=== PATIENT | male | born 1945 | race Caucasian/White ===

== ENCOUNTER 2017-06-10 08:30 | Outpatient (RCR) | payer MEDICARE, BC, SELFPAY ==
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
--- NOTE | 2017-03-04 13:41 | HP.PTREVAL ---
Odalis Humphries, DO, It has been my pleasure to treat DAGMAR GRNAGER over the last 6 visits for DECEONDITIONING. SIDNEY FASCIOTOMIES. COMPARTMENT SYNDROME. Please see the progress note below for an update on the physical therapy plan of care! Subjective: PATIENT REPORTS HE IS STILL HAVING TROUBLE GETTING UP FROM A CHAIR BUT HE IS WALKING A LOT BETTER. HE REPORTS HE DOESN'T USE THE WALKER ANYMORE AND HE WON'T USE A CANE. HE AND HIS REPORT THAT THEIR DAUGHTER RECENTLY UNEXPECTEDLY AND THEY ARE TRYING TO DEAL WITH THAT AND HAD TO MISS SOME THERAPY. THEY REPORT HE HAS RECENTLY BEEN TO THE HEART DOCTOR AND THE LUNG DOCTOR. 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 HE REPORTS HE IS NO LONGER HAVING ANY PAIN IN HIS RIGHT LEG. HE REPORTS HE DOESN'T HAVE ANY SPECIFIC PAIN ANYWHERE BUT HE IS HAVING A LOT OF SWELLING IN HIS HANDS. HE STATES HE REALLY JUST WANTS TO TRY TO GET STRONGER AND SOME MORE STABILITY. HE REPORTS HE DID HAVE A FALL ON THE STEPS AT HOME ABOUT TWO WEEKS AGO BUT DENIES ANY SIGNIFICANT INJURIES. HE WAS HELPED UP AND DID NOT GO TO THE HOSPITAL. RE-CHECK WITH DR. HUMPHRIES PENDING. Objective/Function: UPON EXAM,. Sitting Posture: POOR. Standing Posture: POOR. Other Observations: SIDNEY UE DEPENDENT TO TRANSFER FROM SIT TO STAND BUT PATIENT ABLE TO DO INDEP'LY. Motor deficit: LEFT LE STRENGTH 5/5 WITH MMT EXCEPT HIP GRADED 4/5. RIGHT LE: HIP 4-/5, KNEE EXT 4-/5, KNEE FLEX 4/5, ANKLE DORSIFLEXION 4/5. PATIENT DENIES PAIN WITH MMT. Sensory deficit: SIDNEY LE LIGHT TOUCH SENSATION APPEARS TO BE GROSSLY INTACT. NO BANDAGING OF RIGHT LE AND PATIENT DENIES ANY ISSUES WITH RIGHT LE AT THIS TIME. ROM deficit: TIGHT SIDNEY LE HS'S AND GASTROC SOLEUS COMPLEX'S. Core strength: POOR. Palpation: NO ACUTE TENDERNESS WITH LIGHT PALPATION THROUGHOUT SIDNEY LE'S. GAIT: THIS PATIENT AMBULATES INDEP'LY INTO PT TODAY WITH FAIR CADANCE, WIDE ELIZABETH, DECREASED SIDNEY STRIDE LENGTH, MILD SOB AND NO ASSISTIVE DEVICES OR LOB NOTED X APPROX 300 FEET. HE IS UNABLE TO SLS ON EITHER LEG > 1-2 SEC WITHOUT UE ASSIST. Plan Plan: POSTURE CORRECTION/STRENGTHENING, INSTRUCTION IN APPROPRIATE BODY MECHANICS AND ACTIVITY MODIFICATIONS. DLS STARTING WITH A NEUTRAL SPINE PROGRESSING ROM TOLERATED. GENERAL RECONDITIONING. SIDNEY LE ROM, STRETCHING AND STRENGTHENING. GAIT TRAINING. TRANSFER TRAINING. HEP INSTRUCTION. PATIENT IS AGREEABLE AND STATES THAT IS EXACTLY WHAT HE THINKS HE NEEDS. Goals Goal 1:: INDEP AND SAFE WITH ALL TRANSFERS Goal Time Frame: 4-6 Weeks Goal 2:: INDEP AND SAFE GAIT ON ALL SURFACES WITH LEAST ASSISTIVE DEVICE Goal Time Frame: 4-6 Weeks Goal 3:: INCREASE SIDNEY LE FUNCTIONAL STRENGTH AND ROM Goal Time Frame: 4-6 Weeks Goal 4:: INDEP HEP WITH OR WITHOUT THE HELP OF GROUND PRODUCTS DIRECTOR Goal Time Frame: 4-6 Weeks Anticipated Interventions Patient/Client Instruction: Educate patient on: Condition, Plan of Care, Risk Factors, Benefits of Fitness Program For the Purpose of:: To improve self management Therapeutic Exercise to Include: Strength training, Endurance training, Balance training, Body mechanics, Postural training, Flexibilty training, Gait and locomotor training, Dynamic Lumbar Stabilization For the Purpose of:: To improve ability of physical actions for home/community/work/leisure Please do not hesitate to contact me at [phone] by phone or if you have questions or concerns regarding this new plan of care! Sincerely, Hilda Miner
--- NOTE | 2017-03-25 10:14 | HP.PTREVAL ---
Odalis Humphries, DO, It has been my pleasure to treat DAGMAR GRANGER over the last 12 visits for DECEONDITIONING. SIDNEY FASCIOTOMIES. COMPARTMENT SYNDROME. Please see the progress note below for an update on the physical therapy plan of care! Subjective: PATIENT REPORTS HE IS NOT DOING REAL WELL. STATES HE CANCELLED TUESDAY BECAUSE HE HAS BRONCHITIS AND THE DOCTOR TOLD HIM TO REST. STATES HE ISN'T SURE IF HE SHOULD BE HERE NOW OR NOT. ALSO STATES HE DOES NOT HAVE HIS WALKER WITH HIM BECAUSE HE DOESN'T NEED IT. PATIENT REPORTS HE IS COUGHING A LOT. HE REPORTS HE IS GETTING A PRESCRIPTION FOR COUGH MEDICINE. PATIENT REPORTS HE WENT TO THE DOCTOR SOON HE STARTED COUGHING BECAUSE HE WAS WORRIED ABOUT PNEUMONIA. HE REPORTS HIS CHEST X-RAY WAS NEGATIVE AND THE DOCTOR TOLD HIM TO GO HOME AND REST. PATIENT REPORTS HE IS NOT SCHEDULED TO FOLLOW UP WITH DR. HUMPHRIES FOR QUITE A WHILE. PATIENT REPORTS THAT WHEN HE RETIRED IN AUGUST HE WAS ABLE TO WALK AROUND THE SHOP A LOT BETTER THAN HE CAN NOW BUT HE WAS ALREADY STARTING TO HAVE TROUBLE GETTING OUT OF A CHAIR. HE HAD HIS SURGERY October AND HAS BEEN TRYING TO RECOVER EVER SINCE. HE REPORTS THE PHYSICAL THERAPY HERE AT [facility] IS REALLY HELPING HIM GET HIS STRENGTH BACK. PATIENT REPORTS HE HAS STARTED TO DRIVE A LITTLE BIT AND IT IS GOING WELL. Objective/Function: UPON EXAM,. Sitting Posture: POOR. Standing Posture: POOR. Other Observations: SIDNEY UE DEPENDENT TO TRANSFER FROM SIT TO STAND BUT PATIENT ABLE TO DO INDEP'LY. THIS IS DIFFICULT FOR PATIENT BUT IMPOVING SLOWLY. Motor deficit: LEFT LE STRENGTH 5/5 WITH MMT EXCEPT HIP GRADED 4/5. RIGHT LE: HIP 4/5, KNEE EXT 4-/5, KNEE FLEX 5/5, ANKLE DORSIFLEXION 5/5. PATIENT DENIES PAIN WITH MMT. Sensory deficit: SIDNEY LE LIGHT TOUCH SENSATION APPEARS TO BE GROSSLY INTACT. NO BANDAGING OF RIGHT LE AND PATIENT DENIES ANY ISSUES WITH RIGHT LE AT THIS TIME. ROM deficit: TIGHT SIDNEY LE HS'S AND GASTROC SOLEUS COMPLEX'S. Core strength: POOR. Palpation: NO ACUTE TENDERNESS WITH LIGHT PALPATION THROUGHOUT SIDNEY LE'S. GAIT: THIS PATIENT AMBULATES INDEP'LY INTO PT TODAY WITH FAIR CADANCE, WIDE ELIZABETH, DECREASED SIDNEY STRIDE LENGTH, MILD SOB AND NO ASSISTIVE DEVICES OR LOB NOTED X APPROX 300 FEET. HE IS UNABLE TO SLS ON EITHER LEG > 1-2 SEC WITHOUT UE ASSIST. HE IS REALLY UNSAFE WITHOUT AN AD. HE DOES BETTER WITH A WALKER THAN A CANE. HE IS VERY RESISTANT TO USING A WALKER AT TIMES BUT OTHER TIMES HE IS WILLING. Plan Plan: *ENCOURAGE WALKER FOR SAFETY*. POSTURE CORRECTION/STRENGTHENING, INSTRUCTION IN APPROPRIATE BODY MECHANICS AND ACTIVITY MODIFICATIONS. DLS STARTING WITH A NEUTRAL SPINE PROGRESSING ROM TOLERATED. GENERAL RECONDITIONING. SIDNEY LE ROM, STRETCHING AND STRENGTHENING. GAIT TRAINING. TRANSFER TRAINING. HEP INSTRUCTION. PATIENT IS AGREEABLE AND STATES THAT IS EXACTLY WHAT HE THINKS HE NEEDS. Goals Goal 1:: INDEP AND SAFE WITH ALL TRANSFERS Goal Time Frame: 4-6 Weeks Goal Progress: Progressing Goal 2:: INDEP AND SAFE GAIT ON ALL SURFACES WITH LEAST ASSISTIVE DEVICE Goal Time Frame: 4-6 Weeks Goal Progress: Progressing Goal 3:: INCREASE SIDNEY LE FUNCTIONAL STRENGTH AND ROM Goal Time Frame: 4-6 Weeks Goal Progress: Progressing Goal 4:: INDEP HEP WITH OR WITHOUT THE HELP OF ELECTRICAL CONTROLS TECHNICIAN Goal Time Frame: 4-6 Weeks Goal Progress: Progressing Anticipated Interventions Patient/Client Instruction: Educate patient on: Condition, Plan of Care, Risk Factors, Benefits of Fitness Program For the Purpose of:: To improve self management Therapeutic Exercise to Include: Strength training, Endurance training, Balance training, Body mechanics, Postural training, Flexibilty training, Gait and locomotor training, Dynamic Lumbar Stabilization For the Purpose of:: To improve ability of physical actions for home/community/work/leisure Please do not hesitate to contact me at [phone] by phone or if you have questions or concerns regarding this new plan of care! Sincerely, Hilda Miner
--- NOTE | 2017-04-24 17:46 | HP.PTREVAL_ITS ---
Odalis Humphries, DO, It has been my pleasure to treat DAGMAR GRANGER over the last 18 visits for DECEONDITIONING. SIDNEY FASCIOTOMIES. COMPARTMENT SYNDROME. Please see the progress note below for an update on the physical therapy plan of care! Subjective: PATIENT REPORTS HE IS A LOT BETTER AND HE THINKS HE WOULD LIKE TO TRY TO CONTINUE EXERCISING ON HIS OWN AT THIS POINT BUT OPEN TO CONSIDER WHAT I THINK. REPORTS HE WENT DOWN STEPS AT HIS HOUSE FOR THE FIRST TIME. COMING BACK UP HE WENT ONE STEP AT A TIME WITH THE HANDRAIL AND IST WAS TOUGH BUT HE DID IT. HE REPORTS HE IS NOT HAVING ANY PAIN AT ALL. STATES HE HAS EVEN DONE SOME WALKING OUT ON HIS DRIVEWAY. REPORTS HE IS DOING HIS HEP NOW. HIS CHEIF COMPLAINT IS RIGHT LEG TIGHTNESS AND WEAKNESS BUT THE EX'S ARE HELPING AND IT IS GETTING STRONGER. HE REPORTS THE WEAKNESS IS STILL MAKING IT HARD TO GET DRESSED AND GET IN/OUT OF THE CAR (TRUCK IS EASIER). STATES HIS STILL HAS TO PUT HIS SHOES AND SOCKS ON. HE REPORTS THAT HE CAN NOW PITCH BALL TO HIS GRANDKIDS OK BUT HE CAN'T HIT GOLF BALLS DUE TO BEING OFF BALANCE. REFUSES ASSISTIVE DEVICES. Objective/Function: PATIENT STILL HAS SIGNIFICANT RIGHT LE EDEMA. LACKS FULL CONTROL LOWING SELF FROM STAND TO SIT. ABLE TO NOW GET LEGS ON BED W/OUT UE ASSIST WHEN TRANSITIONING ROM SIT TO SUPINE. LEFT KNEE AROM IN SUPIINE WITH A HEEL SLIDE IS 0 TO 125 DEG FLEX. RIGHT 0-110 DEG FLEX. CASE CONFERENCE WITH WILD BURR - RECOMMEND OT CONSULT FOR DRESSING AND POSSIBLE INSTRUCTION IN SOCK AID. PATIENT IS AGREEABLE. Plan Plan: CONT PT 2X'S A WEEK. POSTURE CORRECTION/STRENGTHENING, INSTRUCTION IN APPROPRIATE BODY MECHANICS AND ACTIVITY MODIFICATIONS. DLS STARTING WITH A NEUTRAL SPINE PROGRESSING ROM TOLERATED. GENERAL RECONDITIONING. SIDNEY LE ROM, STRETCHING AND STRENGTHENING. GAIT TRAINING. TRANSFER TRAINING. HEP INSTRUCTION. PATIENT IS AGREEABLE Goals Goal 1:: INDEP AND SAFE WITH ALL TRANSFERS Goal Time Frame: 4-6 Weeks Goal Progress: Progressing Goal 2:: INDEP AND SAFE GAIT ON ALL SURFACES WITH LEAST ASSISTIVE DEVICE Goal Time Frame: 4-6 Weeks Goal Progress: Progressing Goal 3:: INCREASE SIDNEY LE FUNCTIONAL STRENGTH AND ROM Goal Time Frame: 4-6 Weeks Goal Progress: Progressing Goal 4:: INDEP HEP WITH OR WITHOUT THE HELP OF GROUP FITNESS INSTRUCTOR Goal Time Frame: 4-6 Weeks Goal Progress: Progressing Anticipated Interventions Patient/Client Instruction: Educate patient on: Condition, Plan of Care, Risk Factors, Benefits of Fitness Program For the Purpose of:: To improve self management Therapeutic Exercise to Include: Strength training, Endurance training, Balance training, Body mechanics, Postural training, Flexibilty training, Gait and locomotor training, Dynamic Lumbar Stabilization For the Purpose of:: To improve ability of physical actions for home/community/ work/leisure Please do not hesitate to contact me at [phone] by phone or Fax: if you have questions or concerns regarding this new plan of care! Sincerely, Hilda Miner
--- NOTE | 2017-06-10 09:48 | HP.PTREVAL_ITS ---
Odalis Humphries, DO, It has been my pleasure to treat DAGMAR GRANGER over the last 22 visits for DECEONDITIONING. SIDNEY FASCIOTOMIES. COMPARTMENT SYNDROME. Please see the progress note below for an update on the physical therapy plan of care! Subjective: PATIENT REPORTS DR. BARNEY TOLD HIM NOT TO GO OUT IN THE COLD BECAUSE OF HIS HEART CONDITION. HE REPORTS THAT IS WHY HE DOESN'T COME TO PT SOMETIMES. PT STATES I FEEL GOOD MOST OF THE TIME. I AM PHYSICALLY IN PRETTY GOOD SHAPE I THINK. PATIENT REPORTS HE AVOIDS KNEELING DOWN THOUGH. PATIENT REPORTS HIS HOME EX IS GOING GOOD AND HE WOULD LIKE TO JUST CONTINUE EXERCISING AT HOME FOR NOW. PATIENT REPORTS HE IS LOOKING FORWARD TO WHEN IT WARMS UP. HE REPORTS THAT HE VISITS PEOPLE IN HIS [place] THAT NEED IT AND HE REALLY ENJOYS IT. PATIENT REPORTS HE HASN'T SEEN AN OCCUPATIONAL THERAPIST AGAIN BECAUSE HE DID PLENTY OF THAT IN THE HOSPITAL. PATIENT REPORTS HE CAN GET HIS SHOES ON AND IS LEFT SOCK BY HIMSELF NOW HE JUST CAN'T GET HIS RIGHT SOCK ON. PATIENT REPORTS HE IS COMPLETELY DRESSING HIMSELF NOW EXCEPT HIS RIGHT SOCK AND HE DOES NOT WANT TO SEE AN OCCUPATIONAL THERAPIST. HIS HELPS HIM WITH HIS RIGHT SOCK. Objective/Function: PATIENT IS IMPROVING OVER-ALL. PATIENTS RIGHT LE EDEMA IS SIGNIFICANTLY BETTER. ABLE TO CONTROL LOWING SELF FROM STAND TO SIT NOW. ABLE TO NOW GET LEGS ON BED W/OUT UE ASSIST WHEN TRANSITIONING FROM SIT TO SUPINE. LEFT KNEE AROM IN SUPIINE WITH A HEEL SLIDE IS 0 TO 130 DEG FLEX. RIGHT 0-115 DEG FLEX. PATIENT IS NOW ABLE TO TRANSITION FROM SIT TO STAND WITH ONE UE ASSIST. HE IS ALMOST ABLE TO GET UP WITHOUT USING HIS HANDS. HOWEVER, HE IS STILL UNABLE TO SINGLE LEG STANCE ON EITHER LE MORE THAN 1-2 SECONDS WITHOUT UE ASSIST. PATIENT CONTINUES TO REFUSE ASSISTIVE DEVICE DESPITE MY RECOMMENDATIONS. PATIENT IS A HIGH FALL RISK. PATIENT COMMUNICATES A GOOD UNDERSTANDING OF HEP INSTRUCTIONS. Plan Plan: WILL D/C PATIENT AT HIS REQUEST AT THIS TIME. PATIENT AGREED TO LET ME DISCUSS THE OUTCOME OF THIS VISIT WITH HIS . SHE DID NOT COME BACK TO THE TREATMENT ROOM TODAY AND SHE WAS NOT AVAILABLE AT THE CONCLUSION OF HIS APPOINTMENT. I TOLD HIM HE COULD HAVE HER CALL ME IF SHE HAS ANY QUESTIONS. Goals Goal 1:: INDEP AND SAFE WITH ALL TRANSFERS Goal Time Frame: 4-6 Weeks Goal Progress: Goal Met Goal 2:: INDEP AND SAFE GAIT ON ALL SURFACES WITH LEAST ASSISTIVE DEVICE Goal Time Frame: 4-6 Weeks Goal Progress: Progressing Goal 3:: INCREASE SIDNEY LE FUNCTIONAL STRENGTH AND ROM Goal Time Frame: 4-6 Weeks Goal Progress: Goal Met Goal 4:: INDEP HEP WITH OR WITHOUT THE HELP OF STEVEDORE HOLD Goal Time Frame: 4-6 Weeks Goal Progress: Goal Met Anticipated Interventions Patient/Client Instruction: Educate patient on: Condition, Plan of Care, Risk Factors, Benefits of Fitness Program For the Purpose of:: To improve self management Therapeutic Exercise to Include: Strength training, Endurance training, Balance training, Body mechanics, Postural training, Flexibilty training, Gait and locomotor training, Dynamic Lumbar Stabilization For the Purpose of:: To improve ability of physical actions for home/community/ work/leisure Please do not hesitate to contact me at [phone] by phone or Fax: if you have questions or concerns regarding this new plan of care! Sincerely, Hilda Miner
== END 2017-06-10 09:00 | disposition home or self-care (01) ==
LOC: PT 08:30
PROVIDERS: Family Provider Preventive Medicine Occupational Medicine; PCP Preventive Medicine Occupational Medicine; Visit Provider Orthopaedic Surgery
DX: M79.A29 Nontraumatic compartment syndrome of unspecified lower extremity (principal)
CPT/HCPCS: 97110; 97116; 97163; 97530; G8978; G8979

== ENCOUNTER 2017-07-19 18:33 | Emergency (ER) | payer MEDICARE, BC, SELFPAY ==
[2017-07-19 18:35] VITALS: BP 183/102; PULSE 55; RESP 20; TEMP 36.5; O2SAT 94; BMI 39.4
[2017-07-19 18:59] VITALS: O2SAT 95
--- NOTE | 2017-07-19 19:07 | EKG12_ITS ---
Test Reason : SOB Blood Pressure : / mmHG Vent. Rate : 051 BPM Atrial Rate : 051 BPM P-R Int : 336 ms QRS Dur : 084 ms QT Int : 556 ms P-R-T Axes : 073 071 095 degrees QTc Int : 512 ms Sinus bradycardia with 1st degree A-V block Nonspecific ST and T wave abnormality Prolonged QT Abnormal ECG Confirmed by STEVEN JAVED, MEERA ([id number]), editorial intern KASSI GONZALEZ ([id number]) on 07/20/2017 2:29:55 PM Referred By: JENNIFER Confirmed By:MEERA HARRIS MD
[2017-07-19 19:17] LABS: Absolute Lymphocyte Count 1.62 X10^3/ul (0.83-4.51); Absolute Neutrophil Count 5.3 X10^3/uL (2.0-7.7); Basophil# 0.01 X10^3/uL; Basophil% 0.1 % (0-1); Eosinophil# 0.29 X10^3/uL; Eosinophils% 3.6 % (0-5); Hematocrit 35.3 % (40-54); Hemoglobin 10.9 g/dl (13.0-16.5); Lymphocyte # 1.62 X10^3/ul (4.0); Mean Corp Hgb Conc 30.9 g/gl (32-36); Mean Corpuscular Hgb 27.9 pg (27.0-32.0); Mean Corpuscular Volume 90.5 fL (80-94); Mean Platelet Vol. 10.3 fl (6.2-12.0); Monocyte# 0.86 X10^3/uL; Monocyte% 10.6 % (0-10); Neutrophil # 5.29 X10^3/uL (2.7-7.7); Neutrophil % 65.2 % (47-70); POSITIVE COUNT NO; POSITIVE DIFFERENTIAL NO; POSITIVE MORPHOLOGY NO; Platelet Count 360 K/mm3 (150-450); RBC Distribution Width SD 52.8 fl (35.1-43.9); White Blood Count 8.1 K/mm3 (4.4-11.0)
[2017-07-19] MEDS: Ipratropium/Albuterol Sulfate 3 ML AMPUL.NEB INHALATION (19:18)
[2017-07-19 19:19] VITALS: PULSE 52; RESP 18
[2017-07-19 19:39] LABS: Anion Gap 7 (5-15); BUN 33 mg/dL (7-18); BUN/Creat Ratio 18.8 RATIO (10-20); Calcium,Total 9.1 mg/dL (8.5-10.1); Chloride 102 mmol/L (98-107); Creatinine, Serum 1.76 mg/dL (0.70-1.30); EST Glomerular Filtration Rate 41 mL/min (>60); Est Glom Filt Rate - Afr Amer 49 mL/min (>60); Estimated Creatinine Clearance 42.25 ml/min; Glucose 208 mg/dL (74-106); Potassium 3.8 mmol/L (3.5-5.1); Sodium Level 140 mmol/L (136-145)
--- NOTE | 2017-07-19 19:40 | RAD_ITS ---
STUDY: X-RAY CHEST REASON FOR EXAM: Male, 72 years old. Shortness of breath x4-6 weeks TECHNIQUE: Single AP portable view of the chest. COMPARISON: 02/05/2017 FINDINGS: Lungs are mildly hypoinflated. Mild diffuse interstitial prominence suggesting vascular congestion. There is no demonstrated pleural abnormality. Sternal cerclage wires and vascular clips are present from a prior sternotomy and coronary artery bypass graft procedure (CABG). Normal mediastinum and hodan. Normal visualized pulmonary arteries. Normal visualized aortic arch and descending thoracic aorta. Normal visualized thoracic spine. There is degenerative osteoarthritis of the bilateral shoulders. There is no demonstrated abnormality of the visualized soft tissue structures of the upper abdomen. RAD/Chest 1 View (Portable) IMPRESSION: Findings suggestive of CHF Electronically Signed: Mario Burns DO at 20:15 EST Tel , Service support ,
[2017-07-19 19:44] LABS: BNP,B-Type NATRIURETIC PEPTIDE 704.8 pg/mL (0-100)
--- NOTE | 2017-07-19 20:54 | ED.VISSUMM ---
- ER Visit Summary Date of Service: 07/19/17 Chief Complaint: Dyspnea History of Present Illness: The patient is a 72 M presents with dyspnea) past few weeks. No tobacco history. Here with spouse. States history of CHF, COPD, has seen PCP 3-4 times since symptoms started. There has been torsemide adjustments. There is been no leg swelling on last visit. Currently taking torsemide at 20 mg daily. Denies orthopnea symptoms. Does complain of some mild productive sputum. No fevers or chills. No chest pains. Patient with complex history including an STEMI, he states he had right lower leg compartment syndrome from being on Coumadin with a history of A. fib. This was in September 2015. After being taken off anticoagulation, he developed DVT and PE along with pneumonia since then. He is currently on Eliquis and is taking his medications. Discussed with exertional dyspnea, he denies, however family states he did have mild exertional dyspnea on their 1 visit. Physical Examination: Temp: 97.7, pulse 55, respiration 20, blood pressure 183/102, pulse ox 94 on room air general: Alert and oriented ?3, no acute distress HEENT: Normocephalic, atraumatic. Moist mucosa membranes Neck: supple, nontender. Cardiovascular: Regular rate and rhythm, no murmurs Respiratory: Normal breath sounds, symmetric, no distress Abdomen: Soft, nontender, nondistended Extremities: Nontender, no edema, pulses intact ?4 Neuro: no focal neurological deficits. Test Results: EKG sinus bradycardia rate of 51, first-degree block, no ST or T-wave changes. CBC, BMP is white count 8.1, hemoglobin 0.9, creatinine 1.76. BNP 704, troponin 0 0.97. Chest x-ray, concerns of mild CHF per radiology. Emergency Department Course and Treatment: Patient complains of new symptoms much cough states he wheezing at home. No distress on examination. EKG normal. Is given aerosol treatments. Workup initiated. Chest x-ray no mild CHF per radiology, BNP 704. He is not hypoxic or tachypneic. He is on furosemide daily. Troponin did return at 0.97, EKG normal. He denies any chest pains recently. With aerosol treatments his symptoms did improve. Creatinine is chronic from previous comparisons. I did speak with cardiology, Dr. Villavicencio with the troponin findings. During discussion we trended his labs, no troponin chronically elevated he had NSTEMI in December of last year, in January had a troponin similar at 0.97. With these chronic findings, cardiology did not feel further workup is needed. To be seen as an outpatient. Vitals are stable, with his COPD history with cough and mild sputum, discuss regarding gold criteria for treat with antibiotics. He started on Zithromax. He will follow-up as an outpatient. He will return if any worsening symptoms. Treatment Plan: [] Disposition: Discharge Impression: 1. COPD exacerbation 2. Chronic kidney disease 3. Chronic elevated troponin This note was generated with [employer] dictation software. It may contain incorrect words, spelling, and punctuation that were not noted in review of the chart prior to signing ED Disposition - Plan for ED Patient: Disposition: Home or Assisted Living Chief Complaint: Shortness of Breath Diagnosis: COPD exacerbation Instructions: ED COPD Flare Prescriptions: Albuterol Sulfate [Proventil Hfa] 6.7 gm IH Q4H PRN PRN #1 [email or web address] PRN Reason: sob or wheezing Azithromycin [Zithromax] 250 mg PO DAILY #4 tablet Referrals: Chad Hill DO [Primary Care Provider] - 3-5 Days
[2017-07-19 20:55] VITALS: BP 181/88; PULSE 55; RESP 20; RESP 22; O2SAT 98; O2SAT 99
[2017-07-19] MEDS: Azithromycin 250 MG Tablet 500 MG PO (21:04)
== END 2017-07-19 21:19 | disposition home or self-care (01) ==
PROVIDERS: Emergency Provider Emergency Medicine; Family Provider Preventive Medicine Occupational Medicine; PCP Preventive Medicine Occupational Medicine
DX: J44.1 Chronic obstructive pulmonary disease with (acute) exacerbation (principal); I13.0 Hypertensive heart and chronic kidney disease with heart failure and stage 1 through stage 4 chronic kidney disease, or unspecified chronic kidney disease; E11.22 Type 2 diabetes mellitus with diabetic chronic kidney disease; N18.9 Chronic kidney disease, unspecified; I50.9 Heart failure, unspecified; R79.89 Other specified abnormal findings of blood chemistry; I44.0 Atrioventricular block, first degree; I25.2 Old myocardial infarction; E78.00 Pure hypercholesterolemia, unspecified; M10.9 Gout, unspecified; Z86.711 Personal history of pulmonary embolism; Z86.718 Personal history of other venous thrombosis and embolism; I48.0 Paroxysmal atrial fibrillation; M79.A21 Nontraumatic compartment syndrome of right lower extremity; Z87.01 Personal history of pneumonia (recurrent); Z95.1 Presence of aortocoronary bypass graft; Z79.01 Long term (current) use of anticoagulants; Z79.82 Long term (current) use of aspirin; Z79.4 Long term (current) use of insulin; Z79.899 Other long term (current) drug therapy
CPT/HCPCS: 71045; 80048; 83880; 84484; 85025; 93005; 94640; 99285; A4216

== ENCOUNTER → 2017-09-08 10:16 | Outpatient (CLI) | payer MEDICARE, BC, SELFPAY | PROVIDERS: Family Provider Preventive Medicine Occupational Medicine; PCP Preventive Medicine Occupational Medicine; Visit Provider Nurse Practitioner Acute Care | DX: J18.9 Pneumonia, unspecified organism (principal) | CPT/HCPCS: 87070; 87205 ==

== ENCOUNTER → 2017-09-13 16:05 | Outpatient (CLI) | payer MEDICARE, BC, SELFPAY ==
--- NOTE | 2017-09-13 16:19 | RAD_ITS ---
STUDY: X-RAY CHEST REASON FOR EXAM: Male, 72 years old. Dyspnea TECHNIQUE: Frontal and lateral views of the chest. COMPARISON: 07/19/2017 FINDINGS: The lungs are hyperexpanded. There are coarsened interstitial markings suggestive of mild chronic fibrosis. Scarring in both lung bases is stable. No gross focal infiltrates. Bilateral very small pleural effusions. Sternal cerclage wires and vascular clips are present from a prior sternotomy and coronary artery bypass graft procedure (CABG). Normal mediastinum and hodan. Normal visualized pulmonary arteries. Normal visualized aortic arch and descending thoracic aorta. There are diffuse degenerative changes of the visualized thoracic spine. There is a stable left shoulder arthroplasty. There is no demonstrated abnormality of the visualized soft tissue structures of the upper abdomen. RAD/Chest PA and Lateral IMPRESSION: COPD with mild fibrosis and scarring. Small bilateral pleural effusions. Electronically Signed: Anup Sands MD at 19:22 EDT , Service support ,
[2017-09-13 17:49] LABS: Anion Gap 10 (5-15); BUN 36 mg/dL (7-18); BUN/Creat Ratio 21.7 RATIO (10-20); Calcium,Total 8.5 mg/dL (8.5-10.1); Chloride 102 mmol/L (98-107); Creatinine, Serum 1.66 mg/dL (0.70-1.30); EST Glomerular Filtration Rate 44 mL/min (>60); Est Glom Filt Rate - Afr Amer 53 mL/min (>60); Glucose 416 mg/dL (74-106); Potassium 4.1 mmol/L (3.5-5.1); Sodium Level 139 mmol/L (136-145)
[2017-09-13 17:55] LABS: BNP,B-Type NATRIURETIC PEPTIDE 985.5 pg/mL (0-100)
== END ==
PROVIDERS: Family Provider Preventive Medicine Occupational Medicine; PCP Preventive Medicine Occupational Medicine; Visit Provider Nurse Practitioner Acute Care
DX: R06.02 Shortness of breath (principal); I10 Essential (primary) hypertension; I25.10 Atherosclerotic heart disease of native coronary artery without angina pectoris; I50.32 Chronic diastolic (congestive) heart failure; R06.00 Dyspnea, unspecified
CPT/HCPCS: 36415; 71046; 80048; 83880

== ENCOUNTER 2017-09-17 22:49 | Inpatient (IN) | payer MEDICARE, BC, SELFPAY ==
[2017-09-17 22:51] VITALS: BP 197/83; PULSE 83; RESP 17; TEMP 38.2; O2SAT 93; BMI 40.8
--- NOTE | 2017-09-17 23:01 | EKG12_ITS ---
Test Reason : Blood Pressure : / mmHG Vent. Rate : 082 BPM Atrial Rate : 082 BPM P-R Int : 256 ms QRS Dur : 098 ms QT Int : 378 ms P-R-T Axes : 036 055 176 degrees QTc Int : 441 ms Sinus rhythm with 1st degree A-V block with Premature atrial complexes Nonspecific ST and T wave abnormality Abnormal ECG Confirmed by STEVEN JAVED, MEERA ([id number]), sound editor KASSI GONZALEZ ([id number]) on 09/20/2017 2:06:23 PM Referred By: Arline Llamas Confirmed By:MEERA HARRIS MD
--- NOTE | 2017-09-17 23:05 | RAD_ITS ---
STUDY: X-RAY CHEST REASON FOR EXAM: Male, 72 years old. PT HAS BEEN FEELING WEAK LATELY AND SOB. DENIES ANY FALLS. EEVATED TEMP IN SQUAD 101 TECHNIQUE: Single frontal view of the chest. COMPARISON: September 13, 2017 FINDINGS: Chronic appearing increased interstitial lung markings. There are multiple median sternotomy wires. Improvement in the size of the pleural effusions. Total left shoulder arthroplasty. Enlarged heart size. Normal mediastinum and hodan. Normal visualized pulmonary arteries. There is atherosclerotic calcification of the aortic arch with tortuosity. There are diffuse degenerative changes of the visualized thoracic spine. There is degenerative osteoarthritis of the bilateral shoulders. There is no demonstrated abnormality of the visualized soft tissue structures of the upper abdomen. RAD/Chest 1 View (Portable) IMPRESSION: Improvement in the size of the pleural effusions. Electronically Signed: Shaggy Cowan MD at 23:21 EDT , Service support ,
--- NOTE | 2017-09-17 23:09 | ED.DCSUM_ITS ---
- ER Visit Summary Date of Service: 09/17/17 Chief Complaint: Shortness of breath and weakness History of Present Illness: The patient is a 72 M presenting for evaluation secondary shortness breath and weakness. Patient states over the course of approximately last 3 days he has had progressively worsening shortness of breath and generalized weakness. Patient states that this has been associated with a cough that is productive of sputum. He denies any chest pain or fevers. Denies any nausea vomiting diarrhea. He states that he has baseline edema that is unchanged. Patient is typically on oxygen or CPAP. Patient does have an underlying history of COPD, congestive heart failure secondary to [place], as well as PE. He is on Eliquis for anticoagulation. Patient denies that there is any laterality to his weakness but states that he has been so weak that he has been unable to get out of bed recently. Physical Examination: Vital signs notable for blood pressure 197/83 temperature of 100.7 pulse ox of 93% on 2 L. Obese male no acute distress. Head normocephalic. Moist mucous membranes. Neck supple. Heart was regular rate and rhythm with a 3 out of 6 systolic murmur noted. Lung sounds showed minimal wheezes in the upper lung briseno with no respiratory distress or retractions. Abdomen was obese but nontender and soft. There was +1 bilaterally symmetric pitting edema with a right fasciotomy scar noted. Skin was otherwise normal color no rash. Patient was alert and oriented with no lateralizing neurological deficits, NIH stroke scale was 0. Test Results: EKG shows a sinus rhythm of 82 with first-degree AV block. FL interval is 256. Isoelectric ST segments, nonspecific T-wave flattening noted throughout the majority of the leads that is grossly unchanged from June of this year. CBC demonstrates leukocytosis of 12.9 mild anemia of 10.7, chronic and simple. Chemistry shows potassium 3.4 creatinine 1.57. Troponin elevated at 1.01, but this appears to be chronic when trending the patient back as he typically is either 0.9 or 1. BNP elevated at 761, influenza positive. Chest x -ray shows improved pleural effusions per radiology. Emergency Department Course and Treatment: Patient presented secondary to shortness of breath weakness and generalized illness. Patient's workup as noted above was positive for influenza B. Patient was also noted to have an elevated troponin, but when trending the patient's troponin back it seems that the patient must have a chronic troponin leak as he typically is 0.9 or 1. He is not complaining of any chest pain at this point I do not believe that he requires treatment as an NSTEMI. Patient is unable to ambulate however with his influenza and shortness of breath so I believe that he requires admission. Patient was administered Tamiflu and will be admitted under the hospitalist. Disposition: Admission Impression: 1. Influenza B 2. Declining functional status with inability to ambulate 3. Chronic troponin elevation This note was generated with [employer] dictation software. It may contain incorrect words, spelling, and punctuation that were not noted in review of the chart prior to signing ED Disposition - Plan for ED Patient: Disposition: Acute Care [facility] Chief Complaint: General Illness
[2017-09-17 23:32] VITALS: PULSE 80; RESP 18
[2017-09-17] MEDS: Ipratropium/Albuterol Sulfate 3 ML AMPUL.NEB INHALATION (23:33)
[2017-09-17 23:52] LABS: International Normalized Ratio 1.3; Prothrombin Time (Protime)PT. 15.9 SECONDS (11.7-14.9)
[2017-09-18] VITALS (22 sets, daily range): BP systolic 120–177; BP diastolic 70–87; PULSE 60–85; RESP 16–22; TEMP 36.3–37.5; O2SAT 92–98; BMI 39.1; BMI 40.8
--- NOTE | 2017-09-18 | NURSING ---
POSITIVE FLU B REPORTED TO . VERBALIZED UNDERSTANDING
[2017-09-18 00:06] LABS: Absolute Lymphocyte Count 0.41 X10^3/ul (0.83-4.51); Absolute Neutrophil Count 11.5 X10^3/uL (2.0-7.7); Basophil# 0.03 X10^3/uL; Basophil% 0.2 % (0-1); Eosinophil# 0.02 X10^3/uL; Eosinophils% 0.2 % (0-5); Hematocrit 33.8 % (40-54); Hemoglobin 10.7 g/dl (13.0-16.5); Lymphocyte # 0.41 X10^3/ul (4.0); Lymphocyte % 3.2 % (19-41); Mean Corp Hgb Conc 31.7 g/gl (32-36); Mean Corpuscular Hgb 27.6 pg (27.0-32.0); Mean Corpuscular Volume 87.3 fL (80-94); Mean Platelet Vol. 10.3 fl (6.2-12.0); Monocyte# 0.82 X10^3/uL; Monocyte% 6.4 % (0-10); Neutrophil # 11.46 X10^3/uL (2.7-7.7); Neutrophil % 88.7 % (47-70); Platelet Count 250 K/mm3 (150-450); RBC Distribution Width SD 50.3 fl (35.1-43.9); Red Blood Count 3.87 M/mm3 (4.6-6.2); White Blood Count 12.9 K/mm3 (4.4-11.0)
[2017-09-18 00:07] LABS: Differential Indicated SCAN CRITERIA MET; POSITIVE COUNT NO; POSITIVE DIFFERENTIAL YES; POSITIVE MORPHOLOGY NO
[2017-09-18 00:11] LABS: Anion Gap 7 (5-15); BUN 29 mg/dL (7-18); BUN/Creat Ratio 18.5 RATIO (10-20); Calcium,Total 8.4 mg/dL (8.5-10.1); Chloride 101 mmol/L (98-107); Creatinine, Serum 1.57 mg/dL (0.70-1.30); EST Glomerular Filtration Rate 47 mL/min (>60); Est Glom Filt Rate - Afr Amer 56 mL/min (>60); Estimated Creatinine Clearance 47.37 ml/min; Glucose 207 mg/dL (74-106); Potassium 3.4 mmol/L (3.5-5.1); Sodium Level 138 mmol/L (136-145)
--- NOTE | 2017-09-18 00:13 | NURSING ---
TROP OF 1.[address] SIMMONS
[2017-09-18 00:32] LABS: BNP,B-Type NATRIURETIC PEPTIDE 761.9 pg/mL (0-100)
--- NOTE | 2017-09-18 00:50 | PCM.HP.STD ---
Problem List (1) Generalized weakness Status: Acute (2) COPD exacerbation with acute bronchitis Status: Acute (3) Acute bronchitis due to Haemophilus influenzae Status: Acute (4) VICKY (obstructive sleep apnea) Status: Chronic (5) Asthma Status: Acute Qualifiers: Asthma severity: moderate Asthma persistence: persistent Asthma complication type: uncomplicated Qualified Code(s): J45.40 - Moderate persistent asthma, uncomplicated (6) NSTEMI (non-ST elevated myocardial infarction) Status: Acute (7) S/P CABG x 3 Status: Chronic (8) Chronic renal insufficiency Status: Chronic Qualifiers: Chronic kidney disease stage: stage 3 (moderate) Qualified Code(s): N18.3 - Chronic kidney disease, stage 3 (moderate) (9) Compartment syndrome of right lower extremity Status: Chronic Qualifiers: Encounter type: sequela (10) Hematoma Status: Acute (11) Diabetes mellitus Status: Chronic Qualifiers: Diabetes mellitus type: type 2 Diabetes mellitus snf insulin use: unspecified labeling machine operator insulin use status Diabetes mellitus complication status: with unspecified complications Qualified Code(s): E11.8 - Type 2 diabetes mellitus with unspecified complications (12) Hyperlipidemia Status: Chronic Qualifiers: Hyperlipidemia type: unspecified Qualified Code(s): E78.5 - Hyperlipidemia, unspecified (13) Depression Status: Chronic Qualifiers: Depression Type: reactive depression Qualified Code(s): F32.9 - Major depressive disorder, single episode, unspecified (14) Gout Status: Chronic Qualifiers: Gout site: unspecified site Gout etiology: unspecified cause Chronicity: unspecified Qualified Code(s): M10.9 - Gout, unspecified (15) Delayed surgical wound healing Status: Chronic Qualifiers: Encounter type: subsequent encounter (16) Wound, surgical, nonhealing Status: Chronic Qualifiers: Encounter type: subsequent encounter (17) Cellulitis Status: Acute Qualifiers: Site of cellulitis: extremity Site of cellulitis of extremity: finger Laterality: left Qualified Code(s): L03.012 - Cellulitis of left finger (18) SOB (shortness of breath) Status: Acute (19) Acute respiratory failure Status: Acute (20) Pulmonary emboli Status: Chronic (21) Pneumonia Status: Acute (22) CHF (congestive heart failure) Status: Chronic Qualifiers: Qualified Code(s): I50.33 - Acute on chronic diastolic (congestive) heart failure (23) Abnormal cardiac enzyme level Status: Acute (24) DVT (deep venous thrombosis) Status: Chronic Qualifiers: DVT location: lower extremity (25) Pulmonary hypertension Status: Chronic (26) Community acquired pneumonia Status: Resolved (27) Chronic kidney disease, stage 3 Status: Chronic (28) Acute on chronic congestive heart failure Status: Acute Qualifiers: Qualified Code(s): I50.33 - Acute on chronic diastolic (congestive) heart failure (29) Paroxysmal atrial fibrillation Status: Chronic (30) Congestive heart failure (CHF) Status: Chronic Qualifiers: Qualified Code(s): I50.32 - Chronic diastolic (congestive) heart failure (31) Type 2 diabetes mellitus Status: Chronic Qualifiers: Diabetes mellitus labeling machine operator insulin use: without labeling machine operator use Diabetes mellitus complication status: with hyperglycemia Qualified Code(s): E11.65 - Type 2 diabetes mellitus with hyperglycemia (32) Hypertension Status: Chronic Qualifiers: Hypertension type: essential hypertension Qualified Code(s): I10 - Essential (primary) hypertension (33) Coronary artery disease Status: Chronic Qualifiers: Coronary Disease-Associated Artery/Lesion type: unspecified vessel or lesion type [place] vs. transplanted heart: [place] heart Associated angina: angina presence unspecified Qualified Code(s): I25.10 - Atherosclerotic heart disease of [place] coronary artery without angina pectoris History of Present Illness Date of Admission: 09/18/17 Chief Complaint: Generalized weakness for 3 days The patient is a 72 year old M with multiple comorbidities comes to ER with generalized weakness and shortness of breath for about 3 days. Patient has cough and not able to bring up phlegm. Patient also has nausea but no vomiting. Patient has low-grade fever, chills, wheezing and chest congestion symptoms consistent with COPD with moderate acute bronchitis. Patient also has chronically elevated troponin and previous admission. As per EMS vital, his blood pressure was high 197/100 and respiratory rate 20/min [] ED, patient was found to have fever, temperature 100.7, high blood pressure. EKG shows A. fib at [address]-T changes. Basic lab shows leukocytosis with left shift, creatinine 1.5 cm which is his baseline, BUN 29 K3.4. BNP elevated. Chest x-ray Shows improvement of the size of pleural effusion and right basilar atelectasis. Past Medical History Past Medical History (Chronic Problems): Chronic Problems (Last Reviewed 08/12/17 @ 09:55 by SADIQ BelcherC) VICKY (obstructive sleep apnea) (Chronic) S/P CABG x 3 (Chronic) Chronic renal insufficiency (Chronic) Compartment syndrome of right lower extremity (Chronic) Diabetes mellitus (Chronic) Hyperlipidemia (Chronic) Depression (Chronic) Gout (Chronic) Delayed surgical wound healing (Chronic) Wound, surgical, nonhealing (Chronic) Pulmonary emboli (Chronic) CHF (congestive heart failure) (Chronic) DVT (deep venous thrombosis) (Chronic) Pulmonary hypertension (Chronic) Chronic kidney disease, stage 3 (Chronic) Paroxysmal atrial fibrillation (Chronic) Congestive heart failure (CHF) (Chronic) Type 2 diabetes mellitus (Chronic) Hypertension (Chronic) Coronary artery disease (Chronic) Allergies No Known Allergies Allergy (Verified 09/17/17 22:56) Home Medications: Ambulatory Orders Medication Instructions Recorded Amiodarone HCl [Cordarone] 200 mg PO DAILY 02/05/17 Apixaban [Eliquis] 5 mg PO BID 02/05/17 Aspirin [Aspirin, Baby] 81 mg PO DAILY@0800 02/05/17 Atorvastatin Calcium [Lipitor] 40 mg PO QHS 02/05/17 Febuxostat [Uloric] 40 mg PO DAILY 02/05/17 Glimepiride [Amaryl] 2 mg PO BID 02/05/17 Iron Polysaccharide Complex 150 mg PO DAILYCM 02/05/17 [Ferrex 150] Isosorbide Mononitrate [Imdur] 30 mg PO DAILY 02/05/17 Metoprolol Succinate 100 mg PO BID 02/05/17 [place] Q Plus 2 cap PO DAILY 02/05/17 Potassium Chloride [K-Dur] 20 meq PO BID 02/05/17 Torsemide [Demadex] 20 mg PO DAILY 02/05/17 Venlafaxine HCl [Effexor] 37.5 mg PO DAILY 02/05/17 hydrALAZINE [Apresoline] 25 mg PO TID 02/05/17 insulin detemir (U-100) 100 20 unit SC QHS 05/13/17 unit/mL subcutaneous solution Surgical History: coronary bypass surgery, - - fasciotomy on left lower extremity. Smoking Status: Never smoker - *Family History Maternal History Items: No pertinent history Paternal History Items: No pertinent history Review of Systems Constitutional: Reports: Chills, Fever. Denies: Weight Change HEENT: Reports: Sinus Congestion, Sinus Drainage. Denies: Head Aches Cardiovascular: Reports: Edema. Denies: Chest Pain, Palpitations Respiratory: Reports: Cough, Shortness of breath at rest, Wheezing. Denies: Sputum production Gastrointestinal: Denies: Abdominal Pain, Nausea, Vomiting Genitourinary: Denies: Dysuria Musculoskeletal: Denies: Joint Pain, Joint Tenderness Skin: Denies: Rash, Wounds Neurological: Denies: Numbness, Tingling, Focal weakness Psychiatric: Denies: Anxiety, Depression, Homicidal Ideations, Suicidal Ideations Hematologic/ Lymphatic: Denies: Easy Bruising, Easy Bleeding VTE Information - Inpt Only VTE Present on Admission: No VTE Mechan Device Prophylaxis: None VTE Pharm Prophylaxis ordered?: Yes Reason prophylaxis not ordered:: Procedure Not Indicated - Patient already on Eliquis Patient Problems: Active and Suspected Problems (Last Reviewed 08/12/17 @ 09:55 by Arline Llamas CENTER DIRECTOR LEAD TEACHER-C) Generalized weakness (Acute) COPD exacerbation with acute bronchitis (Acute) Acute bronchitis due to Haemophilus influenzae (Acute) - Physical Exam General: Alert, Oriented x3, Cooperative HEENT: Atraumatic, PERRLA, EOMI, Normocephalic Oral: Dry Mucosa Neck: Supple, No JVD, Negative Carotid Bruits Lungs: Diminished, Short of Breath, Tachypneic, Wheezes Cardiovascular: Irregular Rate, Murmur Abdomen: Bowel Sounds Present, Soft, Non Tender, Non-Distended Extremities: Capillary Refill Less than 3 Seconds, Edema Skin: No rashes, No breakdown Musculoskeletal: No Tenderness to Palpation of Joints or Extremities Neurological: Cranial nerves II-XII grossly intact Psych/Mental Status: Normal Affect, Appropriate Vital Signs Temp Pulse Resp BP Pulse Ox 100.7 F H 81 20 H 177/85 H 93 09/17/17 22:51 09/18/17 00:12 09/18/17 00:12 09/18/17 00:12 09/17/17 22:51 Assessment/Plan Active and Suspected Problems (Last Reviewed 08/12/17 @ 09:55 by Arline Llamas CENTER DIRECTOR LEAD TEACHER-C) Generalized weakness (Acute) COPD exacerbation with acute bronchitis (Acute) Acute bronchitis due to Haemophilus influenzae (Acute) The patient is a 72 year old M with multiple comorbidities comes to ER with generalized weakness and shortness of breath for about 3 days. Patient has cough and not able to bring up phlegm. Patient also has nausea but no vomiting. Patient denies fever, chills but has wheezing and chest congestion symptoms consistent with COPD with moderate acute bronchitis. Patient also has chronically elevated troponin and previous admission. As per EMS vital, his blood pressure was high 197/100 and respiratory rate 20/min [] ED, patient was found to have fever, temperature 100.7, high blood pressure. EKG shows A. fib at [address]-T changes. Basic lab shows leukocytosis with left shift, creatinine 1.5 cm which is his baseline, BUN 29 K3.4. BNP elevated. Chest x-ray Shows improvement of the size of pleural effusion. 1. COPD with moderate acute bronchitis secondary to influenza B: Patient is being admitted on the PCU floor. On bronchodilator, incentive spirometry, IV Solu-Medrol and chest physiotherapy. Started on Tamiflu. On CPAP at night as he has a history of obstructive sleep apnea. 2. Chronically elevated troponin most probably due to CKD stage III and history of CHF history of coronary artery status post CABG and stents: Has troponin elevated since October 2012 ranges around 1.0 - 2.46. She denies any chest pain. Patient has history of coronary artery disease status post two-vessel CABG and stents. Last echo in December 2016 shows moderate concentric LVH with normal systolic function, EF 55% with no regional wall motion abnormalities. Moderately dilated RV with moderate global systolic dysfunction. 2+ TR, PA SP 48 images as to moderate pulmonary hypertension. Mild to moderate MR. Normal right and left atrium. 3. Right-sided heart failure with moderate pulmonary hypertension: As mentioned above. Patient home medication including torsemide, cardiac medications continued. 4. CKD stage III mostly due to diabetic nephropathy and cardiorenal disease: Monitor kidney function. Creatinine is on baseline. 5. Paroxysmal A. fib on Eliquis: 6. Diabetes mellitus type 2: Blood sugar is elevated. A1c tomorrow a.m. On Accu-Chek before meals and at bedtime and cover with NovoLog sliding scale. On Levemir. 7. Multiple comorbidities including hypertension, history of DVT and pulmonary embolism, gout, anxiety and depression, history of hematoma and right lower extremity compartment syndrome status post fasciectomy and obstructive sleep apnea: Home medications reconciliation done. PT and OT. Multiple comorbidities complicates the present care and guarded prognosis Due to prophylaxis: On Eliquis Microbiology Past 72 Hours 09/17/17 23:30 Mucosa - Nasopharyngeal Influenza Types A,B Direct FA (BETTINA) - Final Influenzae B Laboratory Results 09/17/17 23:40: WBC 12.9 H, RBC 3.87 L, Hgb 10.7 L, Hct 33.8 L, MCV 87.3, MCH 27.6, MCHC 31.7 L, RDW 16.0 H, RDW Differential 50.3 H, Plt Count 250, MPV 10.3, Immature Gran % (Auto) 1.300 H, Neut % (Auto) 88.7 H, Lymph % (Auto) 3.2 L, [place] % (Auto) 6.4, Eos % (Auto) 0.2, Baso % (Auto) 0.2, Absolute Neuts (auto) 11.5 H, Absolute Lymphs (auto) 0.41 L, Total Counted Not Reportable 09/17/17 23:40: Sodium 138, Potassium 3.4 L, Chloride 101, Carbon Dioxide 30.0, Anion Gap 7, BUN 29 H, Creatinine 1.57 H, Estim Creat Clear Calc 47.37, Est GFR (MDRD) Af Amer 56 L, Est GFR (MDRD) Non-Af 47 L, BUN/Creatinine Ratio 18.5, Glucose 207 H, Calcium 8.4 L, Troponin I 1.01 H* 09/17/17 23:40: B-Natriuretic Peptide 761.9 H 09/17/17 23:40: PT 15.9 H, INR 1.3, APTT 31.0 Clinical Impression(s) from Imaging Studies Chest X-Ray 09/17/17 23:05 IMPRESSION: Improvement in the size of the pleural effusions. Code Visit Inpatient E&M: 00886 Init Hosp L3
--- NOTE | 2017-09-18 01:01 | HP.PCM_ITS ---
Problem List (1) Generalized weakness Status: Acute (2) COPD exacerbation with acute bronchitis Status: Acute (3) Acute bronchitis due to Haemophilus influenzae Status: Acute (4) VICKY (obstructive sleep apnea) Status: Chronic (5) Asthma Status: Acute Qualifiers: Asthma severity: moderate Asthma persistence: persistent Asthma complication type: uncomplicated Qualified Code(s): J45.40 - Moderate persistent asthma, uncomplicated (6) NSTEMI (non-ST elevated myocardial infarction) Status: Acute (7) S/P CABG x 3 Status: Chronic (8) Chronic renal insufficiency Status: Chronic Qualifiers: Chronic kidney disease stage: stage 3 (moderate) Qualified Code(s): N18.3 - Chronic kidney disease, stage 3 (moderate) (9) Compartment syndrome of right lower extremity Status: Chronic Qualifiers: Encounter type: sequela (10) Hematoma Status: Acute (11) Diabetes mellitus Status: Chronic Qualifiers: Diabetes mellitus type: type 2 Diabetes mellitus halfway insulin use: unspecified terminal block assembler insulin use status Diabetes mellitus complication status : with unspecified complications Qualified Code(s): E11.8 - Type 2 diabetes mellitus with unspecified complications (12) Hyperlipidemia Status: Chronic Qualifiers: Hyperlipidemia type: unspecified Qualified Code(s): E78.5 - Hyperlipidemia , unspecified (13) Depression Status: Chronic Qualifiers: Depression Type: reactive depression Qualified Code(s): F32.9 - Major depressive disorder, single episode, unspecified (14) Gout Status: Chronic Qualifiers: Gout site: unspecified site Gout etiology: unspecified cause Chronicity: unspecified Qualified Code(s): M10.9 - Gout, unspecified (15) Delayed surgical wound healing Status: Chronic Qualifiers: Encounter type: subsequent encounter (16) Wound, surgical, nonhealing Status: Chronic Qualifiers: Encounter type: subsequent encounter (17) Cellulitis Status: Acute Qualifiers: Site of cellulitis: extremity Site of cellulitis of extremity: finger Laterality: left Qualified Code(s): L03.012 - Cellulitis of left finger (18) SOB (shortness of breath) Status: Acute (19) Acute respiratory failure Status: Acute (20) Pulmonary emboli Status: Chronic (21) Pneumonia Status: Acute (22) CHF (congestive heart failure) Status: Chronic Qualifiers: Qualified Code(s): I50.33 - Acute on chronic diastolic (congestive) heart failure (23) Abnormal cardiac enzyme level Status: Acute (24) DVT (deep venous thrombosis) Status: Chronic Qualifiers: DVT location: lower extremity (25) Pulmonary hypertension Status: Chronic (26) Community acquired pneumonia Status: Resolved (27) Chronic kidney disease, stage 3 Status: Chronic (28) Acute on chronic congestive heart failure Status: Acute Qualifiers: Qualified Code(s): I50.33 - Acute on chronic diastolic (congestive) heart failure (29) Paroxysmal atrial fibrillation Status: Chronic (30) Congestive heart failure (CHF) Status: Chronic Qualifiers: Qualified Code(s): I50.32 - Chronic diastolic (congestive) heart failure (31) Type 2 diabetes mellitus Status: Chronic Qualifiers: Diabetes mellitus terminal block assembler insulin use: without terminal block assembler use Diabetes mellitus complication status: with hyperglycemia Qualified Code(s): E11.65 - Type 2 diabetes mellitus with hyperglycemia (32) Hypertension Status: Chronic Qualifiers: Hypertension type: essential hypertension Qualified Code(s): I10 - Essential (primary) hypertension (33) Coronary artery disease Status: Chronic Qualifiers: Coronary Disease-Associated Artery/Lesion type: unspecified vessel or lesion type [place] vs. transplanted heart: [place] heart Associated angina: angina presence unspecified Qualified Code(s): I25.10 - Atherosclerotic heart disease of [place] coronary artery without angina pectoris History of Present Illness Date of Admission: 09/18/17 Chief Complaint: Generalized weakness for 3 days The patient is a 72 year old M with multiple comorbidities comes to ER with generalized weakness and shortness of breath for about 3 days. Patient has cough and not able to bring up phlegm. Patient also has nausea but no vomiting. Patient has low-grade fever, chills, wheezing and chest congestion symptoms consistent with COPD with moderate acute bronchitis. Patient also has chronically elevated troponin and previous admission. As per EMS vital, his blood pressure was high 197/100 and respiratory rate 20/min [] ED, patient was found to have fever, temperature 100.7, high blood pressure. EKG shows A. fib at [address]-T changes. Basic lab shows leukocytosis with left shift, creatinine 1.5 cm which is his baseline, BUN 29 K3.4. BNP elevated. Chest x-ray Shows improvement of the size of pleural effusion and right basilar atelectasis. Past Medical History Past Medical History (Chronic Problems): Chronic Problems (Last Reviewed 08/12/17 @ 09:55 by SADIQ BelcherC) VICKY (obstructive sleep apnea) (Chronic) S/P CABG x 3 (Chronic) Chronic renal insufficiency (Chronic) Compartment syndrome of right lower extremity (Chronic) Diabetes mellitus (Chronic) Hyperlipidemia (Chronic) Depression (Chronic) Gout (Chronic) Delayed surgical wound healing (Chronic) Wound, surgical, nonhealing (Chronic) Pulmonary emboli (Chronic) CHF (congestive heart failure) (Chronic) DVT (deep venous thrombosis) (Chronic) Pulmonary hypertension (Chronic) Chronic kidney disease, stage 3 (Chronic) Paroxysmal atrial fibrillation (Chronic) Congestive heart failure (CHF) (Chronic) Type 2 diabetes mellitus (Chronic) Hypertension (Chronic) Coronary artery disease (Chronic) Allergies No Known Allergies Allergy (Verified 09/17/17 22:56) Home Medications: Ambulatory Orders Medication Instructions Recorded Amiodarone HCl [Cordarone] 200 mg PO DAILY 02/05/17 Apixaban [Eliquis] 5 mg PO BID 02/05/17 Aspirin [Aspirin, Baby] 81 mg PO DAILY@0800 02/05/17 Atorvastatin Calcium [Lipitor] 40 mg PO QHS 02/05/17 Febuxostat [Uloric] 40 mg PO DAILY 02/05/17 Glimepiride [Amaryl] 2 mg PO BID 02/05/17 Iron Polysaccharide Complex 150 mg PO DAILYCM 02/05/17 [Ferrex 150] Isosorbide Mononitrate [Imdur] 30 mg PO DAILY 02/05/17 Metoprolol Succinate 100 mg PO BID 02/05/17 [place] Q Plus 2 cap PO DAILY 02/05/17 Potassium Chloride [K-Dur] 20 meq PO BID 02/05/17 Torsemide [Demadex] 20 mg PO DAILY 02/05/17 Venlafaxine HCl [Effexor] 37.5 mg PO DAILY 02/05/17 hydrALAZINE [Apresoline] 25 mg PO TID 02/05/17 insulin detemir (U-100) 100 20 unit SC QHS 05/13/17 unit/mL subcutaneous solution Surgical History: coronary bypass surgery, - - fasciotomy on left lower extremity. Smoking Status: Never smoker - *Family History Maternal History Items: No pertinent history Paternal History Items: No pertinent history Review of Systems Constitutional: Reports: Chills, Fever. Denies: Weight Change HEENT: Reports: Sinus Congestion, Sinus Drainage. Denies: Head Aches Cardiovascular: Reports: Edema. Denies: Chest Pain, Palpitations Respiratory: Reports: Cough, Shortness of breath at rest, Wheezing. Denies: Sputum production Gastrointestinal: Denies: Abdominal Pain, Nausea, Vomiting Genitourinary: Denies: Dysuria Musculoskeletal: Denies: Joint Pain, Joint Tenderness Skin: Denies: Rash, Wounds Neurological: Denies: Numbness, Tingling, Focal weakness Psychiatric: Denies: Anxiety, Depression, Homicidal Ideations, Suicidal Ideations Hematologic/ Lymphatic: Denies: Easy Bruising, Easy Bleeding VTE Information - Inpt Only VTE Present on Admission: No VTE Mechan Device Prophylaxis: None VTE Pharm Prophylaxis ordered?: Yes Reason prophylaxis not ordered:: Procedure Not Indicated - Patient already on Eliquis Patient Problems: Active and Suspected Problems (Last Reviewed 08/12/17 @ 09:55 by Arline Llamas SLEEVE IRONER-C) Generalized weakness (Acute) COPD exacerbation with acute bronchitis (Acute) Acute bronchitis due to Haemophilus influenzae (Acute) - Physical Exam General: Alert, Oriented x3, Cooperative HEENT: Atraumatic, PERRLA, EOMI, Normocephalic Oral: Dry Mucosa Neck: Supple, No JVD, Negative Carotid Bruits Lungs: Diminished, Short of Breath, Tachypneic, Wheezes Cardiovascular: Irregular Rate, Murmur Abdomen: Bowel Sounds Present, Soft, Non Tender, Non-Distended Extremities: Capillary Refill Less than 3 Seconds, Edema Skin: No rashes, No breakdown Musculoskeletal: No Tenderness to Palpation of Joints or Extremities Neurological: Cranial nerves II-XII grossly intact Psych/Mental Status: Normal Affect, Appropriate Vital Signs Temp Pulse Resp BP Pulse Ox 100.7 F H 81 20 H 177/85 H 93 09/17/17 22:51 09/18/17 00:12 09/18/17 00:12 09/18/17 00:12 09/17/17 22:51 Assessment/Plan Active and Suspected Problems (Last Reviewed 08/12/17 @ 09:55 by Arline Llamas SLEEVE IRONER-C) Generalized weakness (Acute) COPD exacerbation with acute bronchitis (Acute) Acute bronchitis due to Haemophilus influenzae (Acute) The patient is a 72 year old M with multiple comorbidities comes to ER with generalized weakness and shortness of breath for about 3 days. Patient has cough and not able to bring up phlegm. Patient also has nausea but no vomiting. Patient denies fever, chills but has wheezing and chest congestion symptoms consistent with COPD with moderate acute bronchitis. Patient also has chronically elevated troponin and previous admission. As per EMS vital, his blood pressure was high 197/100 and respiratory rate 20/min [] ED, patient was found to have fever, temperature 100.7, high blood pressure. EKG shows A. fib at [address]-T changes. Basic lab shows leukocytosis with left shift, creatinine 1.5 cm which is his baseline, BUN 29 K3.4. BNP elevated. Chest x-ray Shows improvement of the size of pleural effusion. 1. COPD with moderate acute bronchitis secondary to influenza B: Patient is being admitted on the PCU floor. On bronchodilator, incentive spirometry, IV Solu-Medrol and chest physiotherapy. Started on Tamiflu. On CPAP at night as he has a history of obstructive sleep apnea. 2. Chronically elevated troponin most probably due to CKD stage III and history of CHF history of coronary artery status post CABG and stents: Has troponin elevated since October 2012 ranges around 1.0 - 2.46. She denies any chest pain. Patient has history of coronary artery disease status post two- vessel CABG and stents. Last echo in December 2016 shows moderate concentric LVH with normal systolic function, EF 55% with no regional wall motion abnormalities. Moderately dilated RV with moderate global systolic dysfunction. 2+ TR, PA SP 48 images as to moderate pulmonary hypertension. Mild to moderate MR. Normal right and left atrium. 3. Right-sided heart failure with moderate pulmonary hypertension: As mentioned above. Patient home medication including torsemide, cardiac medications continued. 4. CKD stage III mostly due to diabetic nephropathy and cardiorenal disease: Monitor kidney function. Creatinine is on baseline. 5. Paroxysmal A. fib on Eliquis: 6. Diabetes mellitus type 2: Blood sugar is elevated. A1c tomorrow a.m. On Accu-Chek before meals and at bedtime and cover with NovoLog sliding scale. On Levemir. 7. Multiple comorbidities including hypertension, history of DVT and pulmonary embolism, gout, anxiety and depression, history of hematoma and right lower extremity compartment syndrome status post fasciectomy and obstructive sleep apnea: Home medications reconciliation done. PT and OT. Multiple comorbidities complicates the present care and guarded prognosis Due to prophylaxis: On Eliquis Microbiology Past 72 Hours 09/17/17 23:30 Mucosa - Nasopharyngeal Influenza Types A,B Direct FA (BETTINA) - Final Influenzae B Laboratory Results 09/17/17 23:40: WBC 12.9 H, RBC 3.87 L, Hgb 10.7 L, Hct 33.8 L, MCV 87.3, MCH 27.6, MCHC 31.7 L, RDW 16.0 H, RDW Differential 50.3 H, Plt Count 250, MPV 10.3 , Immature Gran % (Auto) 1.300 H, Neut % (Auto) 88.7 H, Lymph % (Auto) 3.2 L, [place] % (Auto) 6.4, Eos % (Auto) 0.2, Baso % (Auto) 0.2, Absolute Neuts (auto) 11.5 H, Absolute Lymphs (auto) 0.41 L, Total Counted Not Reportable 09/17/17 23:40: Sodium 138, Potassium 3.4 L, Chloride 101, Carbon Dioxide 30.0, Anion Gap 7, BUN 29 H, Creatinine 1.57 H, Estim Creat Clear Calc 47.37, Est GFR (MDRD) Af Amer 56 L, Est GFR (MDRD) Non-Af 47 L, BUN/Creatinine Ratio 18.5, Glucose 207 H, Calcium 8.4 L, Troponin I 1.01 H* 09/17/17 23:40: B-Natriuretic Peptide 761.9 H 09/17/17 23:40: PT 15.9 H, INR 1.3, APTT 31.0 Clinical Impression(s) from Imaging Studies Chest X-Ray 09/17/17 23:05 IMPRESSION: Improvement in the size of the pleural effusions. Code Visit Inpatient E&M: 89607 Init Hosp L3
[2017-09-18] MEDS: Oseltamivir Phosphate 75 MG Capsule PO (02:01)
[2017-09-18 04:07] LABS: Hematocrit 32.4 % (40-54); Hemoglobin 10.1 g/dl (13.0-16.5); Mean Corp Hgb Conc 31.2 g/gl (32-36); Mean Corpuscular Hgb 27.2 pg (27.0-32.0); Mean Corpuscular Volume 87.3 fL (80-94); Platelet Count 235 K/mm3 (150-450); RBC Distribution Width CV 16.2 % (11.6-14.6); RBC Distribution Width SD 52.1 fl (35.1-43.9); Red Blood Count 3.71 M/mm3 (4.6-6.2); White Blood Count 14.2 K/mm3 (4.4-11.0)
[2017-09-18 04:08] LABS: Scan Indicated on CBC? Y/N NO
[2017-09-18 04:31] LABS: Mucous, Urine 0 SEEN /hpf (<or=2+); Red Blood Cells-Urine 0 SEEN /hpf (0-5); White Blood Cells 0 SEEN /hpf (0-5)
[2017-09-18 04:33] LABS: ALB/GLOB Ratio 0.9 RATIO (0.9-2.4); AST(SGOT) 13 U/L (15-37); Alanine Aminotransfer ALT/SGPT 40 U/L (16-61); Albumin, Serum 2.8 g/dL (3.2-5.0); Alkaline Phosphatase 42 U/L (45-117); Anion Gap 8 (5-15); BUN 27 mg/dL (7-18); BUN/Creat Ratio 18.1 RATIO (10-20); Chloride 101 mmol/L (98-107); Creatinine, Serum 1.49 mg/dL (0.70-1.30); EST Glomerular Filtration Rate 49 mL/min (>60); Est Glom Filt Rate - Afr Amer 60 mL/min (>60); Estimated Creatinine Clearance 49.91 ml/min; Globulin 3.2 g/dL (2.2-4.2); Glucose 218 mg/dL (74-106); Magnesium 2.1 mg/dL (1.6-2.6); Potassium 3.5 mmol/L (3.5-5.1); Sodium Level 139 mmol/L (136-145); Thyroid Stim Hormone (TSH) 0.41 uIU/mL (0.358-3.74)
[2017-09-18 04:41] LABS: Color, Urine Yellow (Yellow); Glucose, Dipstick 50 mg/dl (Normal); Ketone-Dipstick Negative (Negative); Leukocyte Esterase-Dipstick Negative /ul (Negative); Nitrite-Dipstick Negative (Negative); Occult Blood-Urine Negative /ul (Negative); Protein-Dipstick 30 mg/dl (Negative); Urine Bilirubin Dipstick Negative (Negative); Urine Clarity Clear (Clear); Urine Urobilinogen Normal (Normal)
[2017-09-18 05:06] LABS: Bacteria RARE /hpf (None Seen); Squamous Epithelial Cells - UA 0-5 SEEN /hpf (0-5)
[2017-09-18] MEDS: hydrALAZINE 50 MG Tablet PO ×3 (05:55→22:40)
[2017-09-18] MEDS: 0.9% NaCl Peripheral Flush Adult/Peds IV (05:56)
--- NOTE | 2017-09-18 06:40 | ECHOCS_ITS ---
Reason For Study: CAD/ASHD Procedure This was a 2D Doppler, Color Flow transthoracic echocardiogram. Exam performed portable in patient room. Left Ventricle Normal LV size. Moderate concentric left ventricular hypertrophy. Left ventricular systolic function is normal. The estimated ejection fraction is 55 %. Transmitral diastolic flow velocities suggest moderate (stage 2) diastolic dysfunction (pseudonormal pattern). No regional wall motion abnormalities noted. Right Ventricle Normal RV size. Normal systolic function. Atria The left atrium is moderately enlarged. The right atrium is moderately enlarged. Mitral Valve Normal mitral valve. Tricuspid Valve Normal tricuspid valve. Aortic Valve Trisinus/trileaflet aortic valve. Peak aortic valve gradient 35 mmHg. Mean aortic valve gradient 21 mmHg. Mild aortic stenosis. Pulmonic Valve Normal pulmonic valve. Great Vessels Mildly dilated aortic root. The pulmonary artery is normal size. Normal inferior vena cava. Pericardium/Pleural No pericardial effusion. Medication Diluted definity 3ml given slow IV push to enhance endocardial definition. MMode/2D Measurements & Calculations LVIDd: 4.4 cm IVSd: 1.7 cm LVOT diam: 2.4 cm LVIDs: 3.2 cm LVPWd: 1.3 cm LVOT area: 4.4 cm2 RVDd: 3.7 cm FS: 27.6 % Ao root diam: 4.0 cm LAV(MOD-bp): 116.1 ml LAV(MOD-bp) Indexed: 46.7 ml/m2 LA A4 area: 30.4 cm2 LAV(MOD-sp2): 123.2 ml LAV(MOD-sp4): 109.0 ml RA A4 area: 27.9 cm2 Time Measurements MV dec time: 0.22 sec Doppler Measurements & Calculations MV E max jomar: 157.6 cm/sec Lat Peak E' Jomar: 8.5 cm/sec Med Peak E' Jomar: 5.9 cm/sec MV A max jomar: 108.7 cm/sec E/E' lat: 18.5 E/E' med: 26.8 MV E/A: 1.4 MV V2 max: 188.7 cm/sec Ao V2 max: 295.9 cm/sec LV V1 max: 113.3 cm/sec MV max P.2 mmHg Ao max P.0 mmHg LV V1 max P.1 mmHg MV V2 mean: 130.4 cm/sec Ao V2 mean: 219.3 cm/sec LV V1 mean P.7 mmHg MV mean P.4 mmHg Ao mean P.3 mmHg LV V1 mean: 74.8 cm/sec MV V2 VTI: 44.2 cm Ao V2 VTI: 55.4 cm LV V1 VTI: 23.6 cm MVA(VTI): 2.3 cm2 ZOHAIB(I,D): 1.9 cm2 ZOHAIB(V,D): 1.7 cm2 SV(LVOT): 103.0 ml PA V2 max: 138.4 cm/sec Interpretation Summary Normal LV size. Moderate concentric left ventricular hypertrophy. Left ventricular systolic function is normal. The estimated ejection fraction is 55 %. Transmitral diastolic flow velocities suggest moderate (stage 2) diastolic dysfunction (pseudonormal pattern). The left atrium is moderately enlarged. Mild aortic stenosis. Ordering Physician: Yani Joshi Referring Physician: MAYRA BARNEY Performed By: Agata Loving RDCS
[2017-09-18 06:55] LABS: Magnesium 2.1 mg/dL (1.6-2.6)
[2017-09-18 07:27] LABS: Hemoglobin A1c 10.4 % (4.2-6.3)
--- NOTE | 2017-09-18 09:38 | PCM.CONS.C ---
Problem List (1) Generalized weakness Status: Acute (2) VICKY (obstructive sleep apnea) Status: Chronic (3) NSTEMI (non-ST elevated myocardial infarction) Status: Acute (4) S/P CABG x 3 Status: Chronic (5) Hyperlipidemia Status: Chronic Qualifiers: Hyperlipidemia type: unspecified Qualified Code(s): E78.5 - Hyperlipidemia, unspecified (6) Pulmonary hypertension Status: Chronic (7) Paroxysmal atrial fibrillation Status: Chronic Reason for Consult Date of Consultation: 09/18/17 Reason for Consultation: Coronary artery disease status post three-vessel CABG, hypertension, hypercholesterolemia, chronic renal insufficiency, history of paroxysmal atrial fibrillation, pulmonary hypertension History of Present Illness: The patient is a 72 year old M, patient of Dr. Coronel, admitted with influenza B, found to have abnormal troponins. Specifically the patient has a history of hypertension, diabetes, hypercholesterolemia, coronary artery disease status post acute myocardial infarction without ST elevation on 11/15/12. At that time he was emergently transferred to [facility] where Dr. Carballo performed an emergent catheterization which demonstrated significant multivessel coronary disease and evidence of moderate LV dysfunction with an EF around 40%. At that time he underwent urgent bypass surgery receiving a DEL ROSARIO to the LAD, saphenous vein graft to the high diagonal, and a saphenous vein graft to the PDA. Patient has also paroxysmal atrial fibrillation and is placed on chronic amiodarone therapy. Patient had a DVT and a pulmonary embolism in September 2016 and had a type II non-STEMI at that time. Stress test in September 2016 showed evidence of inferior ischemia, distal inferolateral apical perfusion defect that extended to the apex, and an EF of 57%. This was managed medically at the time given the patient's chronic renal insufficiency. Patient states he has never had a catheterization since his bypass surgery. His most recent echo on 12/27/16 showed an EF of 55%, D-shaped left ventricle consistent with at least moderate pulmonary hypertension, RVSP of 48 mmHg, and 1-2+ anteriorly directed mitral regurgitation which is evidence on physical exam today. Patient states that he has had progressively worsening flulike symptoms, but no chest pain, chest pressure. He has been compliant with his medications. He stated last evening that he had no strength was unable to get up out of his bed, called EMS and went to [facility]. He denies any fevers, chills but does complain of a productive cough. He did not have any palpitations or anginal symptoms. His anginal equivalent was profound weakness back in 2012 but had no chest pain at the time. In addition the patient diagnosed with obstructive sleep apnea and is compliant with his CPAP. Currently the patient is resting comfortably, no acute distress. His peak troponin thus far is 1.01, decreasing to 0.96. Creatinine is 1.49. He is on chronic Eliquis at home for his paroxysmal atrial fibrillation. His EKG on admission showed atrial fibrillation with controlled ventricular response which has now converted to normal sinus rhythm with PVCs. No acute changes. [] Past Medical History Allergies/Adverse Reactions: Allergies No Known Allergies Allergy (Verified 09/18/17 04:30) Home Medications: Ambulatory Orders Medication Instructions Recorded Amiodarone HCl [Cordarone] 200 mg PO DAILY 02/05/17 Apixaban [Eliquis] 5 mg PO BID 02/05/17 Aspirin [Aspirin, Baby] 81 mg PO DAILY@0800 02/05/17 Atorvastatin Calcium [Lipitor] 40 mg PO QHS 02/05/17 Febuxostat [Uloric] 40 mg PO DAILY 02/05/17 Glimepiride [Amaryl] 2 mg PO BID 02/05/17 Iron Polysaccharide Complex 150 mg PO BID 02/05/17 [Ferrex 150] Isosorbide Mononitrate [Imdur] 30 mg PO DAILY 02/05/17 Metoprolol Succinate 100 mg PO BID 02/05/17 [place] Q Plus 2 cap PO DAILY 02/05/17 Potassium Chloride [K-Dur] 20 meq PO BID 02/05/17 Torsemide [Demadex] 20 mg PO DAILY 02/05/17 Venlafaxine HCl [Effexor] 37.5 mg PO DAILY 02/05/17 hydrALAZINE [Apresoline] 25 mg PO TID 02/05/17 insulin detemir (U-100) 100 20 unit SC QHS 05/13/17 unit/mL subcutaneous solution Ubidecarenone [Coq10] 50 mg PO BID 09/18/17 Past Medical History (Chronic Problems): Chronic Problems (Last Reviewed 08/12/17 @ 09:55 by Arline Llamas NP-C) VICKY (obstructive sleep apnea) (Chronic) S/P CABG x 3 (Chronic) Chronic renal insufficiency (Chronic) Compartment syndrome of right lower extremity (Chronic) Diabetes mellitus (Chronic) Hyperlipidemia (Chronic) Depression (Chronic) Gout (Chronic) Delayed surgical wound healing (Chronic) Wound, surgical, nonhealing (Chronic) Pulmonary emboli (Chronic) CHF (congestive heart failure) (Chronic) DVT (deep venous thrombosis) (Chronic) Pulmonary hypertension (Chronic) Chronic kidney disease, stage 3 (Chronic) Paroxysmal atrial fibrillation (Chronic) Congestive heart failure (CHF) (Chronic) Type 2 diabetes mellitus (Chronic) Hypertension (Chronic) Coronary artery disease (Chronic) Surgical History: coronary bypass surgery, - - fasciotomy on left lower extremity. - *Family History Maternal Family History: Family History (Last Reviewed 08/12/17 @ 09:55 by JEOVANNY Belcher) Father Diabetes Hypertension CVA (cerebral vascular accident) Sister Diabetes Hypertension Brother Diabetes Heart disease CVA (cerebral vascular accident) History Items: No pertinent history Paternal Family History: Family History (Last Reviewed 08/12/17 @ 09:55 by JEOVANNY Belcher) Father Diabetes Hypertension CVA (cerebral vascular accident) Sister Diabetes Hypertension Brother Diabetes Heart disease CVA (cerebral vascular accident) History Items: No pertinent history Smoking Status: Never smoker Review of Systems - Review of Systems General: Reports: Malaise, Weakness. Denies: Fever, Fatigue, Night Sweats Cardiovascular: Denies: Chest Discomfort, Shortness of Breath, Orthopnea, PND, Peripheral Edema, Palpitations, Lightheadedness, Dizziness, Near Syncope, Syncope Respiratory: Reports: Cough, Sputum Production. Denies: Hemoptysis Gastrointestinal: Denies: Hematemesis, Hematochezia, Melena Genitourinary: Denies: Dysuria, Hematuria Skin: Denies: Rash Subjectve: Patient resting comfortably, no acute distress. Objective: Vital Signs Temp Pulse Resp BP Pulse Ox 99.5 F H 68 18 137/76 H 96 09/18/17 08:09 09/18/17 08:09 09/18/17 08:09 09/18/17 08:09 09/18/17 08:09 Oxygen Flow Rate (L/min) 3.5 Oxygen Delivery Method Nasal Cannula Weight: 289 lb Body Mass Index (BMI) 39.1 Intake and Output for Last 24 Hours 09/16/17 09/17/17 09/18/17 23:59 23:59 23:59 Intake Total 120 / 120 Output Total 550 / 550 Balance -430 / -430 General: Awake, Alert, Oriented x 3 HEENT: PERRL, EOMI, Sclera Non Icteric Neck: Supple, Good ROM, No Lymph Node Enlargement Lungs: Clear to auscultation Cardiovascular: Regular Rhythm, Normal S1, Normal S2, No Rubs, No Gallops Murmur Murmur: Grade 3/6, Holosystolic, [place] Vascular: No Carotid Bruits, Normal Femoral Pulses, Normal Radial Pulses, Normal Dorsalis Pedal Pulse, Normal Posterior Tibial Pulses Abdomen: Bowel Sounds Present, Soft, Non Tender, No HSM, No Organomegaly Extremities: No Cyanosis, No Clubbing, No edema Neurological: No Focal Motor or Sensory Deficit 09/18/17 02:45: Urine Color Yellow, Urine Clarity Clear, Urine pH 7.0, Ur Specific [place] 1.010, Urine Protein 30 H, Urine Glucose (UA) 50 H, Urine Ketones Negative, Urine Occult Blood Negative, Urine Nitrite Negative, Urine Bilirubin Negative, Urine Urobilinogen Normal, Ur Leukocyte Esterase Negative, Urine RBC 0 SEEN, Urine WBC 0 SEEN 09/18/17 03:55: WBC 14.2 H, RBC 3.71 L, Hgb 10.1 L, Hct 32.4 L, MCV 87.3, MCH 27.2, MCHC 31.2 L, RDW 16.2 H, RDW Differential 52.1 H, Plt Count 235, MPV 10.0 09/18/17 03:55: Sodium 139, Potassium 3.5, Chloride 101, Carbon Dioxide 30.0, Anion Gap 8, BUN 27 H, Creatinine 1.49 H, Est GFR (MDRD) Af Amer 60, Est GFR (MDRD) Non-Af 49 L, BUN/Creatinine Ratio 18.1, Glucose 218 H, Calcium 8.0 L, Magnesium 2.1, Total Bilirubin 1.00 09/18/17 03:55: Hemoglobin A1c 10.4 H 09/18/17 03:55: Troponin I 0.98 H* 09/18/17 03:55: Magnesium 2.1 09/18/17 07:30: Troponin I 0.96 H* Rhythm: EKG: ECHO: Stress Test: Cardiac Cath: PCI: CT Surgery: Holter monitor: EPS: PPM: CXR: Chest CT Scan: Assessment/Plan 1. Coronary artery disease: Patient has been admitted for influenza B virus, severe fatigue and weakness, and productive cough. He had incidental atrial fibrillation despite amiodarone therapy which she has had in the past. His current reverted back to normal sinus rhythm as of this morning. In addition he had an abnormal troponin of 1.01 which is trending downwards. Interestingly, his presenting symptoms in 2012 were profound weakness but no significant chest pain. In September 2016 the patient had an abnormal stress test with evidence of inferior ischemia however no catheterization was performed out of concern for his chronic renal insufficiency. He now returns with an abnormal troponin as well. He does have a history of pulmonary embolism and is on chronic Eliquis therapy for it as well as paroxysmal atrial fibrillation, which she has been compliant with. Patient is at least moderate pulmonary hypertension as evidenced by echocardiogram in 2016. I recommended that we repeat his echocardiogram to determine if he has had worsening pulmonary pressures, as well as to assess his LV function. The patient did have an improvement in his LV function after his bypass surgery. I would recommend continuing medical therapy with baby aspirin, beta-karine, Lasix, Imdur/hydralazine combination in place of SAVI inhibitors or arbs with respect to his chronic renal insufficiency, but to hold his Eliquis therapy pending discussion with Dr. Mares regarding possible repeat catheterization and graft angiography. Would recommend renally adjusted subcu Lovenox to protect against DVT and pulmonary embolism as well as for paroxysmal atrial fibrillation. If Dr. Mares does not wish to proceed with cardiac catheterization, would restart the patient's Eliquis and continue medical management. 2. Hyperlipidemia: Recommend repeating lipid profile. Continue atorvastatin. 3. Paroxysmal atrial fibrillation: Currently on Eliquis and beta-karine therapy and currently transition back to normal sinus rhythm. Continue amiodarone therapy at 200 g p.o. daily. 4. Thank you very much for the opportunity to participate in the cardiac care of your patient. Consultation time took place between 835 and 9:05 AM. Code Visit Inpatient E&M: 22497 In Hosp L2
[2017-09-18] MEDS: NYSTATIN 500,000 UNIT/5 ML UDC 500000 UNIT PO ×4 (10:09→22:40)
[2017-09-18] MEDS: Isosorbide Mononitrate 30 MG Tablet PO (10:09)
[2017-09-18] MEDS: guaiFENesin 1,200 MG Tablet 1200 MG PO ×2 (10:09→22:40)
[2017-09-18] MEDS: Furosemide 40 MG Tablet PO (10:09)
[2017-09-18] MEDS: Oseltamivir Phosphate 30 MG Capsule PO ×2 (10:09→22:41)
[2017-09-18] MEDS: Senna/Docusate Sodium 1 Tablet 2 TABLET PO ×2 (10:09→22:39)
[2017-09-18] MEDS: Venlafaxine XR 37.5 MG Capsule PO (10:09)
[2017-09-18] MEDS: APIXABAN 5 MG TABLET PO (10:09)
[2017-09-18] MEDS: Famotidine 20 MG Tablet PO ×2 (10:09→22:39)
[2017-09-18] MEDS: Amiodarone 200 MG Tablet PO (10:09)
[2017-09-18] MEDS: Aspirin 81 MG TAB.CHEW PO (10:10)
[2017-09-18] MEDS: Iron Polysaccharide Complex 150 MG CAPSULE PO (10:10)
[2017-09-18] MEDS: Metoprolol(XL)Succ 100 MG Tablet PO ×2 (10:11→22:41)
--- NOTE | 2017-09-18 12:24 | PN_ITS ---
Patient Problems: Active and Suspected Problems (Last Reviewed 08/12/17 @ 09:55 by Arline Llamas NP-C) Generalized weakness (Acute) COPD exacerbation with acute bronchitis (Acute) Acute bronchitis due to Haemophilus influenzae (Acute) Subjective: Patient seen and examined. States he feels fairly well. Denies cough, fever, chills. Denies chest pain, shortness of breath. Continues to have generalized weakness. Denies other complaints. - Physical Exam General: Alert, Oriented x3, Cooperative, No apparent distress HEENT: Atraumatic, PERRLA, EOMI, Normocephalic Neck: Supple, No JVD, Negative Carotid Bruits Lungs: Diminished, Wheezes Cardiovascular: Regular rate, Normal S1, Normal S2, Murmur Abdomen: Bowel Sounds Present, Soft, Non Tender, Non-Distended, Obese Extremities: No clubbing, No cyanosis, No edema, Capillary Refill Less than 3 Seconds Skin: No rashes, No breakdown Musculoskeletal: No Tenderness to Palpation of Joints or Extremities Neurological: Cranial nerves II-XII grossly intact, Neuro grossly intact Psych/Mental Status: Normal Affect, Appropriate Vital Signs Temp Pulse Resp BP Pulse Ox 99.5 F H 60 18 137/76 H 96 09/18/17 08:09 09/18/17 11:04 09/18/17 10:00 09/18/17 10:11 09/18/17 08:09 Oxygen Flow Rate (L/min) 3.5 Oxygen Delivery Method Nasal Cannula Weight: 131.088 kg Body Mass Index (BMI) 39.1 Intake and Output for Last 24 Hours 09/16/17 09/17/17 09/18/17 23:59 23:59 23:59 Intake Total 120 / 120 Output Total 550 / 550 Balance -430 / -430 Laboratory Tests Past 24 Hrs 09/18/17 09/18/17 09/18/17 02:45 03:55 03:55 WBC 14.2 H RBC 3.71 L Hgb 10.1 L Hct 32.4 L MCV 87.3 MCH 27.2 MCHC 31.2 L RDW 16.2 H RDW Differential 52.1 H Plt Count 235 MPV 10.0 Sodium 139 Potassium 3.5 Chloride 101 Carbon Dioxide 30.0 Anion Gap 8 BUN 27 H Creatinine 1.49 H Estim Creat Clear Calc 49.91 Est GFR (MDRD) Af Amer 60 Est GFR (MDRD) Non-Af 49 L BUN/Creatinine Ratio 18.1 Glucose 218 H Hemoglobin A1c Calcium 8.0 L Magnesium 2.1 Total Bilirubin 1.00 AST 13 L ALT 40 Alkaline Phosphatase 42 L Troponin I Total Protein 6.0 L Albumin 2.8 L Globulin 3.2 Albumin/Globulin Ratio 0.9 TSH 0.41 Urine Color Yellow Urine Clarity Clear Urine pH 7.0 Ur Specific [place] 1.010 Urine Protein 30 H Urine Glucose (UA) 50 H Urine Ketones Negative Urine Occult Blood Negative Urine Nitrite Negative Urine Bilirubin Negative Urine Urobilinogen Normal Ur Leukocyte Esterase Negative Urine RBC 0 SEEN Urine WBC 0 SEEN Ur Squamous Epith Cells 0-5 SEEN Urine Bacteria RARE Urine Mucus 0 SEEN 09/18/17 09/18/17 09/18/17 03:55 03:55 03:55 WBC RBC Hgb Hct MCV MCH MCHC RDW RDW Differential Plt Count MPV Sodium Potassium Chloride Carbon Dioxide Anion Gap BUN Creatinine Estim Creat Clear Calc Est GFR (MDRD) Af Amer Est GFR (MDRD) Non-Af BUN/Creatinine Ratio Glucose Hemoglobin A1c 10.4 H Calcium Magnesium 2.1 Total Bilirubin AST ALT Alkaline Phosphatase Troponin I 0.98 H* Total Protein Albumin Globulin Albumin/Globulin Ratio TSH Urine Color Urine Clarity Urine pH Ur Specific [place] Urine Protein Urine Glucose (UA) Urine Ketones Urine Occult Blood Urine Nitrite Urine Bilirubin Urine Urobilinogen Ur Leukocyte Esterase Urine RBC Urine WBC Ur Squamous Epith Cells Urine Bacteria Urine Mucus 09/18/17 07:30 WBC RBC Hgb Hct MCV MCH MCHC RDW RDW Differential Plt Count MPV Sodium Potassium Chloride Carbon Dioxide Anion Gap BUN Creatinine Estim Creat Clear Calc Est GFR (MDRD) Af Amer Est GFR (MDRD) Non-Af BUN/Creatinine Ratio Glucose Hemoglobin A1c Calcium Magnesium Total Bilirubin AST ALT Alkaline Phosphatase Troponin I 0.96 H* Total Protein Albumin Globulin Albumin/Globulin Ratio TSH Urine Color Urine Clarity Urine pH Ur Specific [place] Urine Protein Urine Glucose (UA) Urine Ketones Urine Occult Blood Urine Nitrite Urine Bilirubin Urine Urobilinogen Ur Leukocyte Esterase Urine RBC Urine WBC Ur Squamous Epith Cells Urine Bacteria Urine Mucus Medical Necessity - Tobacco Use Smoking Status: Never smoker Assessment/Plan Active and Suspected Problems (Last Reviewed 08/12/17 @ 09:55 by Arline Llamas NP-C) Generalized weakness (Acute) COPD exacerbation with acute bronchitis (Acute) Acute bronchitis due to Haemophilus influenzae (Acute) Patient is a 72-year-old male admitted 09/18/17 due to generalized weakness ?3 days. He has a past medical history of CAD status post CABG ?3, COPD, obstructive sleep apnea, type 2 diabetes mellitus, hypertension, hyperlipidemia , depression, gout, history of pulmonary embolism/DVT, chronic CHF, paroxysmal atrial fibrillation, chronic kidney disease stage III. 1. Acute COPD Exacerbation secondary to acute influenza B with associated hypoxia-continue supplemental oxygen to maintain O2 at or above 90%. Continue Tamiflu 30 mg twice daily for a total of 10 doses. Albuterol and DuoNeb aerosols. Continue IV Solu-Medrol 40 mg every 8. 2. Elevated troponin-chronically elevated enzymes. Cardiology consulted. Patient follows with Dr. Mares. Hold eliquis and switch to therapeutic Lovenox in case cath is necessary. Repeat EKG in a.m. Echocardiogram ordered. 3. CAD status post CABG ?3-denies chest pain. Follows with Dr. Mares as noted above. Continue home aspirin, statin, nitrate regimen. 4. Chronic kidney disease stage III-stable, monitor BMP. 5. Type 2 diabetes [id number] before meals at bedtime with sliding scale insulin. Continue home Levemir regimen. 6. History of DVT/PE-Eliquis on hold as noted above. Continue therapeutic subcu Lovenox. 7. Chronic systolic CHF-echocardiogram from 2012 showed an EF of 37%. Continue home regimen of torsemide, metoprolol. 8. Obstructive sleep apnea-continue home CPAP regimen. 9. Hypertension-stable, continue home regimen. 10. Hyperlipidemia-continue statin. 11. Paroxysmal atrial fibrillation-continue home amiodarone and metoprolol regimen. Eliquis on hold. 12. Depression-continue home Effexor regimen. 13. Gout-continue home Uloric regimen. 14. Obesity-encourage diet and lifestyle modifications. Nutrition consult. DVT prophylaxis-Lovenox subcu. This patient was seen by JEOVANNY Parnell under the supervision of Dr. Joshi.
[2017-09-18] MEDS: Enoxaparin 120 MG/0.8 ML Syringe SC (18:10)
[2017-09-18] MEDS: Atorvastatin Calcium 40 MG Tablet PO (22:39)
[2017-09-18 23:15] LABS: Bedside Glucose 405 mg/dL (70-110)
[2017-09-19] VITALS (12 sets, daily range): BP systolic 152–167; BP diastolic 88–92; PULSE 55–90; RESP 16–18; TEMP 36.7–37.4; O2SAT 92–95
--- NOTE | 2017-09-19 05:55 | EKG12_ITS ---
Test Reason : AM EKG Blood Pressure : / mmHG Vent. Rate : 064 BPM Atrial Rate : 064 BPM P-R Int : 246 ms QRS Dur : 104 ms QT Int : 490 ms P-R-T Axes : 090 068 164 degrees QTc Int : 505 ms Sinus rhythm with 1st degree A-V block with Premature atrial complexes Nonspecific T wave abnormality Abnormal ECG When compared with ECG of 17-SEP-2017 23:22, MANUAL COMPARISON REQUIRED, DATA IS UNCONFIRMED Confirmed by STEVEN JAVED, MEERA ([id number]), script editor KASSI GONZALEZ ([id number] on 09/23/2017 3:47:09 PM Referred By: Arline Llamas Confirmed By:MEERA HARRIS MD
[2017-09-19] MEDS: hydrALAZINE 50 MG Tablet PO ×2 (06:37→14:06)
[2017-09-19] MEDS: Enoxaparin 120 MG/0.8 ML Syringe SC (06:37)
[2017-09-19 06:39] LABS: Anion Gap 9 (5-15); BUN 38 mg/dL (7-18); BUN/Creat Ratio 24.1 RATIO (10-20); Calcium,Total 8.3 mg/dL (8.5-10.1); Chloride 101 mmol/L (98-107); Cholesterol 131 mg/dL (200); Creatinine, Serum 1.58 mg/dL (0.70-1.30); EST Glomerular Filtration Rate 46 mL/min (>60); Est Glom Filt Rate - Afr Amer 56 mL/min (>60); Estimated Creatinine Clearance 47.07 ml/min; Glucose 289 mg/dL (74-106); High Density Lipoprotein 58 mg/dL; Potassium 3.7 mmol/L (3.5-5.1); Sodium Level 137 mmol/L (136-145); Triglycerides 93 mg/dL; Very Low Density Lipoprotein 19 mg/dL (5-40)
[2017-09-19 06:50] LABS: Bedside Glucose 312 mg/dL (70-110)
[2017-09-19 06:56] LABS: Absolute Lymphocyte Count 0.37 X10^3/ul (0.83-4.51); Absolute Neutrophil Count 10.6 X10^3/uL (2.0-7.7); Hematocrit 31.1 % (40-54); Hemoglobin 9.6 g/dl (13.0-16.5); Lymphocyte # 0.37 X10^3/ul (4.0); Lymphocyte % 3.3 % (19-41); Mean Corp Hgb Conc 30.9 g/gl (32-36); Mean Corpuscular Volume 87.4 fL (80-94); Mean Platelet Vol. 10.2 fl (6.2-12.0); Monocyte# 0.32 X10^3/uL; Monocyte% 2.8 % (0-10); Neutrophil # 10.57 X10^3/uL (2.7-7.7); Neutrophil % 93.6 % (47-70); Platelet Count 195 K/mm3 (150-450); RBC Distribution Width CV 15.9 % (11.6-14.6); RBC Distribution Width SD 51.4 fl (35.1-43.9); Red Blood Count 3.56 M/mm3 (4.6-6.2); White Blood Count 11.3 K/mm3 (4.4-11.0)
[2017-09-19 07:02] LABS: Differential Indicated SCAN CRITERIA MET; POSITIVE COUNT NO; POSITIVE DIFFERENTIAL YES; POSITIVE MORPHOLOGY NO
[2017-09-19] MEDS: Ipratropium/Albuterol Sulfate 3 ML AMPUL.NEB INHALATION ×3 (07:24→15:07)
--- NOTE | 2017-09-19 08:52 | PCM.PN.CARD ---
Subjectve: Patient feeling much better today, sitting up in bed. Telemetry negative overnight. No chest pain. Objective: Vital Signs Temp Pulse Resp BP Pulse Ox 98.0 F 75 16 159/92 H 92 09/19/17 04:20 09/19/17 07:24 09/19/17 07:24 09/19/17 04:20 09/19/17 07:24 Oxygen Flow Rate (L/min) 3 Oxygen Delivery Method Room Air Weight: 289 lb Body Mass Index (BMI) 39.1 Intake and Output for Last 24 Hours 09/17/17 09/18/17 09/19/17 23:59 23:59 23:59 Intake Total 853 / 853 Output Total 1600 / 1600 650 / 650 Balance -747 / -747 -650 / -650 General: Awake, Alert, Oriented x 3 HEENT: PERRL, EOMI, Sclera Non Icteric Neck: Supple, Good ROM, No Lymph Node Enlargement Lungs: Clear to auscultation Cardiovascular: Regular Rhythm, Normal S1, Normal S2, No Murmurs, No Rubs, No Gallops Vascular: No Carotid Bruits, Normal Femoral Pulses, Normal Radial Pulses, Normal Dorsalis Pedal Pulse, Normal Posterior Tibial Pulses Abdomen: Bowel Sounds Present, Soft, Non Tender, No HSM, No Organomegaly Extremities: No Cyanosis, No Clubbing, No edema Neurological: No Focal Motor or Sensory Deficit 09/18/17 14:00: Troponin I 0.79 H* 09/19/17 05:46: WBC 11.3 H, RBC 3.56 L, Hgb 9.6 L, Hct 31.1 L, MCV 87.4, MCH 27.0, MCHC 30.9 L, RDW 15.9 H, RDW Differential 51.4 H, Plt Count 195, MPV 10.2, Immature Gran % (Auto) 0.300, Neut % (Auto) 93.6 H, Lymph % (Auto) 3.3 L, [place] % (Auto) 2.8, Eos % (Auto) 0.0, Baso % (Auto) 0.0, Absolute Neuts (auto) 10.6 H, Total Counted Not Reportable 09/19/17 05:46: Sodium 137, Potassium 3.7, Chloride 101, Carbon Dioxide 27.0, Anion Gap 9, BUN 38 H, Creatinine 1.58 H, Est GFR (MDRD) Af Amer 56 L, Est GFR (MDRD) Non-Af 46 L, BUN/Creatinine Ratio 24.1 H, Glucose 289 H, Calcium 8.3 L, Triglycerides 93, Cholesterol 131, LDL Cholesterol 54, VLDL Cholesterol 19, HDL Cholesterol 58 Rhythm: EKG: ECHO: Pending Stress Test: Pending Cardiac Cath: PCI: CT Surgery: Holter monitor: EPS: PPM: CXR: Chest CT Scan: Medical Necessity - Tobacco Use Smoking Status: Never smoker Assessment/Plan 1. Coronary artery disease: Patient has been admitted for influenza B virus, severe fatigue and weakness, and productive cough. He had incidental atrial fibrillation despite amiodarone therapy which she has had in the past. His current reverted back to normal sinus rhythm as of 09/18/17, and has remained so since then. In addition he had an abnormal troponin of 1.01 which is trending downwards. Interestingly, his presenting symptoms in 2012 were profound weakness but no significant chest pain. In September 2016 the patient had an abnormal stress test with evidence of inferior ischemia however no catheterization was performed out of concern for his chronic renal insufficiency. He now returns with an abnormal troponin as well in the case of acute respiratory illness with influenza B virus. He does have a history of pulmonary embolism and is on chronic Eliquis therapy for it as well as paroxysmal atrial fibrillation, which she has been compliant with. Patient is at least moderate pulmonary hypertension as evidenced by echocardiogram in September of 2016. I recommended that we repeat his echocardiogram to determine if he has had worsening pulmonary pressures, as well as to assess his LV function. The patient did have an improvement in his LV function after his bypass surgery. I would recommend continuing medical therapy with baby aspirin, beta-karine, Lasix, Imdur/hydralazine combination in place of SAVI inhibitors or arbs with respect to his chronic renal insufficiency, but to hold his Eliquis therapy pending results of his dobutamine echocardiogram. If his dobutamine echocardiogram shows significant ischemia he may require repeat catheterization with graft angiography. If his stress echocardiogram is negative for inducible ischemia, would recommend medical management going forward. Would recommend renally adjusted subcu Lovenox to protect against DVT and pulmonary embolism as well as for paroxysmal atrial fibrillation. If Dr. Mares does not wish to proceed with cardiac catheterization, would restart the patient's Eliquis and continue medical management. 2. Hyperlipidemia: Recommend repeating lipid profile. Continue atorvastatin. 3. Paroxysmal atrial fibrillation: Currently on Eliquis at home and beta-karine therapy and currently transition back to normal sinus rhythm. Continue amiodarone therapy at 200 g p.o. daily. 4. Thank you very much for the opportunity to participate in the cardiac care of your patient. Pending results of stress echocardiogram will discuss results and treatment plan with Dr. Mares. Code Visit Inpatient E&M: 33944 Subs Hosp L2
--- NOTE | 2017-09-19 08:55 | PN.CARD_ITS ---
Subjectve: Patient feeling much better today, sitting up in bed. Telemetry negative overnight. No chest pain. Objective: Vital Signs Temp Pulse Resp BP Pulse Ox 98.0 F 75 16 159/92 H 92 09/19/17 04:20 09/19/17 07:24 09/19/17 07:24 09/19/17 04:20 09/19/17 07:24 Oxygen Flow Rate (L/min) 3 Oxygen Delivery Method Room Air Weight: 289 lb Body Mass Index (BMI) 39.1 Intake and Output for Last 24 Hours 09/17/17 09/18/17 09/19/17 23:59 23:59 23:59 Intake Total 853 / 853 Output Total 1600 / 1600 650 / 650 Balance -747 / -747 -650 / -650 General: Awake, Alert, Oriented x 3 HEENT: PERRL, EOMI, Sclera Non Icteric Neck: Supple, Good ROM, No Lymph Node Enlargement Lungs: Clear to auscultation Cardiovascular: Regular Rhythm, Normal S1, Normal S2, No Murmurs, No Rubs, No Gallops Vascular: No Carotid Bruits, Normal Femoral Pulses, Normal Radial Pulses, Normal Dorsalis Pedal Pulse, Normal Posterior Tibial Pulses Abdomen: Bowel Sounds Present, Soft, Non Tender, No HSM, No Organomegaly Extremities: No Cyanosis, No Clubbing, No edema Neurological: No Focal Motor or Sensory Deficit 09/18/17 14:00: Troponin I 0.79 H* 09/19/17 05:46: WBC 11.3 H, RBC 3.56 L, Hgb 9.6 L, Hct 31.1 L, MCV 87.4, MCH 27.0, MCHC 30.9 L, RDW 15.9 H, RDW Differential 51.4 H, Plt Count 195, MPV 10.2 , Immature Gran % (Auto) 0.300, Neut % (Auto) 93.6 H, Lymph % (Auto) 3.3 L, [place] % (Auto) 2.8, Eos % (Auto) 0.0, Baso % (Auto) 0.0, Absolute Neuts (auto) 10.6 H, Total Counted Not Reportable 09/19/17 05:46: Sodium 137, Potassium 3.7, Chloride 101, Carbon Dioxide 27.0, Anion Gap 9, BUN 38 H, Creatinine 1.58 H, Est GFR (MDRD) Af Amer 56 L, Est GFR ( MDRD) Non-Af 46 L, BUN/Creatinine Ratio 24.1 H, Glucose 289 H, Calcium 8.3 L, Triglycerides 93, Cholesterol 131, LDL Cholesterol 54, VLDL Cholesterol 19, HDL Cholesterol 58 Rhythm: EKG: ECHO: Pending Stress Test: Pending Cardiac Cath: PCI: CT Surgery: Holter monitor: EPS: PPM: CXR: Chest CT Scan: Medical Necessity - Tobacco Use Smoking Status: Never smoker Assessment/Plan 1. Coronary artery disease: Patient has been admitted for influenza B virus, severe fatigue and weakness, and productive cough. He had incidental atrial fibrillation despite amiodarone therapy which she has had in the past. His current reverted back to normal sinus rhythm as of 09/18/17, and has remained so since then. In addition he had an abnormal troponin of 1.01 which is trending downwards. Interestingly, his presenting symptoms in 2012 were profound weakness but no significant chest pain. In September 2016 the patient had an abnormal stress test with evidence of inferior ischemia however no catheterization was performed out of concern for his chronic renal insufficiency. He now returns with an abnormal troponin as well in the case of acute respiratory illness with influenza B virus. He does have a history of pulmonary embolism and is on chronic Eliquis therapy for it as well as paroxysmal atrial fibrillation, which she has been compliant with. Patient is at least moderate pulmonary hypertension as evidenced by echocardiogram in September of 2016. I recommended that we repeat his echocardiogram to determine if he has had worsening pulmonary pressures, as well as to assess his LV function. The patient did have an improvement in his LV function after his bypass surgery. I would recommend continuing medical therapy with baby aspirin, beta-karine, Lasix, Imdur/hydralazine combination in place of SAVI inhibitors or arbs with respect to his chronic renal insufficiency, but to hold his Eliquis therapy pending results of his dobutamine echocardiogram. If his dobutamine echocardiogram shows significant ischemia he may require repeat catheterization with graft angiography. If his stress echocardiogram is negative for inducible ischemia, would recommend medical management going forward. Would recommend renally adjusted subcu Lovenox to protect against DVT and pulmonary embolism as well as for paroxysmal atrial fibrillation. If Dr. Mares does not wish to proceed with cardiac catheterization, would restart the patient's Eliquis and continue medical management. 2. Hyperlipidemia: Recommend repeating lipid profile. Continue atorvastatin. 3. Paroxysmal atrial fibrillation: Currently on Eliquis at home and beta- karine therapy and currently transition back to normal sinus rhythm. Continue amiodarone therapy at 200 g p.o. daily. 4. Thank you very much for the opportunity to participate in the cardiac care of your patient. Pending results of stress echocardiogram will discuss results and treatment plan with Dr. Mares. Code Visit Inpatient E&M: 09798 Subs Hosp L2
[2017-09-19] MEDS: 0.9% NaCl Peripheral Flush Adult/Peds IV ×2 (10:06→14:07)
[2017-09-19] MEDS: Senna/Docusate Sodium 1 Tablet 2 TABLET PO (10:10)
[2017-09-19] MEDS: FEBUXOSTAT 40 MG TABLET PO (10:10)
[2017-09-19] MEDS: Venlafaxine XR 37.5 MG Capsule PO (10:11)
[2017-09-19] MEDS: Iron Polysaccharide Complex 150 MG CAPSULE PO (10:11)
[2017-09-19] MEDS: Isosorbide Mononitrate 30 MG Tablet PO (10:11)
[2017-09-19] MEDS: Amiodarone 200 MG Tablet PO (10:11)
[2017-09-19] MEDS: Furosemide 40 MG Tablet PO (10:12)
[2017-09-19] MEDS: Aspirin 81 MG TAB.CHEW PO (10:12)
[2017-09-19] MEDS: Famotidine 20 MG Tablet PO (10:12)
[2017-09-19] MEDS: guaiFENesin 1,200 MG Tablet 1200 MG PO (10:12)
[2017-09-19] MEDS: Oseltamivir Phosphate 30 MG Capsule PO (10:13)
[2017-09-19] MEDS: NYSTATIN 500,000 UNIT/5 ML UDC 500000 UNIT PO ×2 (10:13→14:07)
[2017-09-19 11:45] LABS: Bedside Glucose 303 mg/dL (70-110)
--- NOTE | 2017-09-19 11:59 | CPS ---
pep therapy placed at bedside. pt refused to use.
--- NOTE | 2017-09-19 12:29 | CASEMGMT ---
See [facility] CM Assessment Link. DC Plan: Home on discharge. -Pt states he is donut hole for medications. He goes to his PCP for samples to assist with cost. -per PT/OT pt could benefit from further therapy. Pt states he felt weak yesterday, but today is improving and is declining home health or outpt PT. States his is able to assist. Everton ADAM RN ACM
--- NOTE | 2017-09-19 13:16 | PCM.PROGNOTE ---
<Stefanie Holliday - Last Filed: 09/19/17 13:18> Subjective: Patient seen and examined. No acute events overnight. Denies chest pain, shortness of breath. Denies other current complaints. - Physical Exam General: Alert, Oriented x3, Cooperative, No apparent distress HEENT: Atraumatic, PERRLA, EOMI, Normocephalic Neck: Supple, No JVD, Negative Carotid Bruits Lungs: Clear to auscultation, Diminished Cardiovascular: Regular rate, Normal S1, Normal S2, Murmur Abdomen: Bowel Sounds Present, Soft, Non Tender, Non-Distended, Obese Extremities: No clubbing, No cyanosis, No edema, Capillary Refill Less than 3 Seconds Skin: No rashes, No breakdown Musculoskeletal: No Tenderness to Palpation of Joints or Extremities Neurological: Cranial nerves II-XII grossly intact, Neuro grossly intact Psych/Mental Status: Normal Affect, Appropriate Vital Signs Temp Pulse Resp BP Pulse Ox 98.4 F 73 16 152/88 H 94 09/19/17 10:02 09/19/17 11:29 09/19/17 10:51 09/19/17 10:02 09/19/17 10:02 Oxygen Flow Rate (L/min) 3 Oxygen Delivery Method Room Air Weight: 131.088 kg Body Mass Index (BMI) 39.1 Intake and Output for Last 24 Hours 09/17/17 09/18/17 09/19/17 23:59 23:59 23:59 Intake Total 853 / 853 60 / 60 Output Total 1600 / 1600 650 / 650 Balance -747 / -747 -590 / -590 Laboratory Tests Past 24 Hrs 09/18/17 09/19/17 09/19/17 14:00 05:46 05:46 WBC 11.3 H RBC 3.56 L Hgb 9.6 L Hct 31.1 L MCV 87.4 MCH 27.0 MCHC 30.9 L RDW 15.9 H RDW Differential 51.4 H Plt Count 195 MPV 10.2 Immature Gran % (Auto) 0.300 Neut % (Auto) 93.6 H Lymph % (Auto) 3.3 L [place] % (Auto) 2.8 Eos % (Auto) 0.0 Baso % (Auto) 0.0 Absolute Neuts (auto) 10.6 H Absolute Lymphs (auto) 0.37 L Total Counted Not Reportable Differential Comment COMMENT Sodium 137 Potassium 3.7 Chloride 101 Carbon Dioxide 27.0 Anion Gap 9 BUN 38 H Creatinine 1.58 H Estim Creat Clear Calc 47.07 Est GFR (MDRD) Af Amer 56 L Est GFR (MDRD) Non-Af 46 L BUN/Creatinine Ratio 24.1 H Glucose 289 H Calcium 8.3 L Troponin I 0.79 H* Triglycerides 93 Cholesterol 131 LDL Cholesterol 54 VLDL Cholesterol 19 HDL Cholesterol 58 POC Glucose 09/19/17 09/19/17 09/18/17 11:40 06:45 21:51 POC Glucose 303 H 312 H 405 H Medical Necessity - Tobacco Use Smoking Status: Never smoker Assessment/Plan Patient is a 72-year-old male admitted 09/18/17 due to generalized weakness ?3 days. He has a past medical history of CAD status post CABG ?3, COPD, obstructive sleep apnea, type 2 diabetes mellitus, hypertension, hyperlipidemia, depression, gout, history of pulmonary embolism/DVT, chronic CHF, paroxysmal atrial fibrillation, chronic kidney disease stage III. 1. Acute COPD Exacerbation secondary to acute influenza B with associated hypoxia-continue supplemental oxygen to maintain O2 at or above 90%. Continue Tamiflu 30 mg twice daily for a total of 10 doses. Albuterol and DuoNeb aerosols. Continue IV Solu-Medrol 40 mg every 8. 2. Elevated troponin-chronically elevated enzymes. Cardiology consulted. Patient follows with Dr. Mares. Hold eliquis and switch to therapeutic Lovenox in case cath is necessary. Stress echo results pending. 3. CAD status post CABG ?3-denies chest pain. Follows with Dr. Mares as noted above. Continue home aspirin, statin, nitrate regimen. 4. Chronic kidney disease stage III-stable, monitor BMP. 5. Type 2 diabetes ofauqafy-Ebau-Utqdx before meals at bedtime with sliding scale insulin. Continue home Levemir regimen. 6. History of DVT/PE-Eliquis on hold as noted above. Continue therapeutic subcu Lovenox. 7. Chronic systolic CHF-echocardiogram from 2012 showed an EF of 37%. Continue home regimen of torsemide, metoprolol. 8. Obstructive sleep apnea-continue home CPAP regimen. 9. Hypertension-stable, continue home regimen. 10. Hyperlipidemia-continue statin. 11. Paroxysmal atrial fibrillation-continue home amiodarone and metoprolol regimen. Eliquis on hold. 12. Depression-continue home Effexor regimen. 13. Gout-continue home Uloric regimen. 14. Obesity-encourage diet and lifestyle modifications. Nutrition consult. DVT prophylaxis-Lovenox subcu. This patient was seen by JEOVANNY Parnell under the supervision of Dr. Gupta. <Bea Gupta - Last Filed: 09/19/17 16:03> - Physical Exam Vital Signs Temp Pulse Resp BP Pulse Ox 98.4 F 88 16 152/88 H 94 09/19/17 10:02 09/19/17 15:22 09/19/17 15:07 09/19/17 10:02 09/19/17 10:02 Oxygen Flow Rate (L/min) 3 Oxygen Delivery Method Room Air Weight: 131.1 kg Body Mass Index (BMI) 39.1 Intake and Output for Last 24 Hours 09/17/17 09/18/17 09/19/17 23:59 23:59 23:59 Intake Total 853 / 853 60 / 60 Output Total 1600 / 1600 650 / 650 Balance -747 / -747 -590 / -590 Laboratory Tests Past 24 Hrs 09/19/17 09/19/17 05:46 05:46 WBC 11.3 H RBC 3.56 L Hgb 9.6 L Hct 31.1 L MCV 87.4 MCH 27.0 MCHC 30.9 L RDW 15.9 H RDW Differential 51.4 H Plt Count 195 MPV 10.2 Immature Gran % (Auto) 0.300 Neut % (Auto) 93.6 H Lymph % (Auto) 3.3 L [place] % (Auto) 2.8 Eos % (Auto) 0.0 Baso % (Auto) 0.0 Absolute Neuts (auto) 10.6 H Absolute Lymphs (auto) 0.37 L Total Counted Not Reportable Differential Comment COMMENT Sodium 137 Potassium 3.7 Chloride 101 Carbon Dioxide 27.0 Anion Gap 9 BUN 38 H Creatinine 1.58 H Estim Creat Clear Calc 47.07 Est GFR (MDRD) Af Amer 56 L Est GFR (MDRD) Non-Af 46 L BUN/Creatinine Ratio 24.1 H Glucose 289 H Calcium 8.3 L Triglycerides 93 Cholesterol 131 LDL Cholesterol 54 VLDL Cholesterol 19 HDL Cholesterol 58 POC Glucose 04/09/19/17 09/18/17 11:40 06:45 21:51 POC Glucose 303 H 312 H 405 H Assessment/Plan Patient was seen and examined independently of next practitioner Stefanie Holliday. Noted that he is going for dobutamine stress test. Denies any chest pain no dizziness or palpitation. States he feels well. Has been ambulating with his walker. Vitals were reviewed and were stable. Labs are reviewed. Patient feels much better, being treated for acute influenza. Blood sugars a little bit elevated on account of steroids. Follow-up after stress test
[2017-09-19] MEDS: Metoprolol(XL)Succ 100 MG Tablet PO (14:06)
--- NOTE | 2017-09-19 14:31 | STRESSREP ---
Stress Test Report Pharmacologic myocardial perfusion stress test. 72-year-old man with a history of coronary artery disease and abnormal cardiac enzymes. Stress protocol: Resting EKG demonstrates atrial fibrillation with rate of 84 bpm resting blood pressure is 140/80 mmHg. 0.4 mg regadenoson was infused per usual protocol followed by rapid intravenous saline flush injection continuous EKG monitoring was performed. The patient maintained atrial fibrillation throughout the recording with a maximum heart rate of 91 bpm which was 61% of maximum predicted heart rate the maximum workload was 1 metabolic equivalent. At rest nonspecific ST-T wave changes were noted at peak infusion nonspecific ST-T wave changes were noted. No clinical angina was noted. The resting blood pressure is 140/80 mmHg and the final blood pressure 124/70 mmHg. Myocardial perfusion protocol. 14.7 Millicuries of technetium 99m sestamibi was injected at rest. 0.4 mg of regadenoson was infused per usual protocol peak infusion 44.9 millicuries of technetium 99m sestamibi was injected stress images were obtained stress and rest images were reconstructed and compared in the short axis vertical long and horizontal long axis. Gated images were also obtained. Perfusion SPECT analysis: Review of the stress images demonstrate normal uptake of tracer noted in the septum and anterior wall. There is an extensive perfusion defect involving the basal and mid inferior wall and inferolateral wall. There is extension of the above to the inferior apical wall towards the lateral wall. This is present on the stress and resting images to a similar extent. 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 No evidence of ischemia is noted. A small amount of elaine-infarct ischemia cannot be completely excluded. Gated SPECT analysis: The gated ejection fraction is noted to be 55% with no obvious wall motion abnormalities. 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 No obvious ischemia noted. Gated ejection fraction.
--- NOTE | 2017-09-19 14:50 | PCM.DC ---
- Discharge Diagnoses Current Active Problems: Current Active and Chronic Problems (Last Reviewed 08/12/17 @ 09:55 by JEOVANNY Belcher) Generalized weakness (Acute) COPD exacerbation with acute bronchitis (Acute) Acute bronchitis due to Haemophilus influenzae (Acute) You will use the following diet at home:: Cardiac Discharge Activity: Return to Normal Activity Call your doctor if you observe: Shortness of breath, Dizziness, Fainting spells, Chest pain, Increased palpitations (irregular heartbeat) Allergies/Adverse Reactions: Allergies No Known Allergies Allergy (Verified 09/18/17 04:30) Medications to take at Discharge Amiodarone HCl [Cordarone] 200 mg PO DAILY 02/05/17 Apixaban [Eliquis] 5 mg PO BID 02/05/17 Aspirin [Aspirin, Baby] 81 mg PO DAILY@0800 02/05/17 Atorvastatin Calcium [Lipitor] 40 mg PO QHS 02/05/17 Febuxostat [Uloric] 40 mg PO DAILY 02/05/17 Glimepiride [Amaryl] 2 mg PO BID 02/05/17 Iron Polysaccharide Complex [Ferrex 150] 150 mg PO BID 02/05/17 Isosorbide Mononitrate [Imdur] 30 mg PO DAILY 02/05/17 Metoprolol Succinate 100 mg PO BID 02/05/17 [place] Q Plus 2 cap PO DAILY 02/05/17 Potassium Chloride [K-Dur] 20 meq PO BID 02/05/17 Torsemide [Demadex] 20 mg PO DAILY 02/05/17 Venlafaxine HCl [Effexor] 37.5 mg PO DAILY 02/05/17 hydrALAZINE [Apresoline] 25 mg PO TID 02/05/17 insulin detemir (U-100) 100 unit/mL subcutaneous solution 20 unit SC QHS 05/13/17 Ubidecarenone [Coq10] 50 mg PO BID 09/18/17 Oseltamivir Phosphate [Tamiflu] 30 mg PO BID #7 cap 09/19/17 Prednisone See Taper PO DAILY #30 tab 09/19/17 The following prescriptions were given: Prednisone See Taper PO DAILY #30 tab Oseltamivir Phosphate [Tamiflu] 30 mg PO BID #7 cap Primary Care Physician: Chad Hill DO [Primary Care Provider] - Please follow up with your Primary Care Physician in: 1 Week Please Follow Up With: Moodispaw,Ezio, MD When: 1-2 Weeks Please Follow Up With: Dao Carranza MD When: As scheduled Proposed Discharge Date: 09/19/17
--- NOTE | 2017-09-19 14:51 | PCM.DC.SUM ---
<Stefanie Holliday - Last Filed: 09/19/17 14:56> Discharge Date and Diagnosis Date of Admission: 09/18/17 Date of Discharge: 09/19/17 - Primary Discharge Diagnosis Active and Suspected Problems (Last Reviewed 08/12/17 @ 09:55 by Arline Llamas NP-C) 1. Acute COPD exacerbation secondary to acute influenza B with associated hypoxia 2. Elevated troponin-ACS ruled out. 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) Diabetes mellitus (Chronic) Hyperlipidemia (Chronic) Depression (Chronic) Gout (Chronic) Delayed surgical wound healing (Chronic) Wound, surgical, nonhealing (Chronic) Pulmonary emboli (Chronic) CHF (congestive heart failure) (Chronic) DVT (deep venous thrombosis) (Chronic) Pulmonary hypertension (Chronic) Chronic kidney disease, stage 3 (Chronic) Paroxysmal atrial fibrillation (Chronic) Congestive heart failure (CHF) (Chronic) Type 2 diabetes mellitus (Chronic) Hypertension (Chronic) Coronary artery disease (Chronic) Hospital Course and Treatment Imaging Results: Diagnostic Data Chest X-Ray 09/17/17 23:05 IMPRESSION: Improvement in the size of the pleural effusions. Electronically Signed: Shaggy Cowan MD at 23:21 EDT , Service support , Dr. Estrada- Cardiology Operations: None Procedures: Stress test Summary of Care Provided: Patient is a 72-year-old male admitted 09/18/17 due to generalized weakness ?3 days. He has a past medical history of CAD status post CABG ?3, COPD, obstructive sleep apnea, type 2 diabetes mellitus, hypertension, hyperlipidemia, depression, gout, history of pulmonary embolism/DVT, chronic CHF, paroxysmal atrial fibrillation, chronic kidney disease stage III. 1. Acute COPD Exacerbation secondary to acute influenza B with associated hypoxia-wean off of oxygen and stable on room air. Continue Tamiflu 30 mg twice daily for a total of 10 doses. Prednisone taper at discharge. 2. Elevated troponin-chronically elevated enzymes. Cardiology consulted. Patient follows with Dr. Mares. Patient underwent stress test which was negative for ischemia. Patient can continue outpatient follow-up with cardiology. 3. CAD status post CABG ?3-denies chest pain. Follows with Dr. Mares as noted above. Continue home aspirin, statin, nitrate regimen. 4. Chronic kidney disease stage III-stable. 5. Type 2 diabetes mellitus-continue home insulin regimen. 6. History of DVT/PE-continue home Eliquis regimen. 7. Chronic systolic CHF-echocardiogram from 2012 showed an EF of 37%. Continue home regimen of torsemide, metoprolol. 8. Obstructive sleep apnea-continue home CPAP regimen. Continue outpatient follow-up with pulmonary medicine. 9. Hypertension-stable, continue home regimen. 10. Hyperlipidemia-continue statin. 11. Paroxysmal atrial fibrillation-continue home amiodarone, metoprolol and Eliquis regimen. 12. Depression-continue home Effexor regimen. 13. Gout-continue home Uloric regimen. 14. Obesity-encourage diet and lifestyle modifications. General: Alert, Oriented x3, Cooperative, No apparent distress HEENT: Atraumatic, PERRLA, EOMI, Normocephalic Neck: Supple, No JVD, Negative Carotid Bruits Lungs: Clear to auscultation, Diminished Cardiovascular: Regular rate, Normal S1, Normal S2, Murmur Abdomen: Bowel Sounds Present, Soft, Non Tender, Non-Distended, Obese Extremities: No clubbing, No cyanosis, No edema, Capillary Refill Less than 3 Seconds Skin: No rashes, No breakdown Musculoskeletal: No Tenderness to Palpation of Joints or Extremities Neurological: Cranial nerves II-XII grossly intact, Neuro grossly intact Psych/Mental Status: Normal Affect, Appropriate Patient seen and examined prior to discharge. Physical assessment as an above. Patient is stable for discharge home with recommendations as noted above. This patient was seen by JEOVANNY Parnell under the supervision of Dr. Gupta. Discharge Diet: Low fat/ Low Cholesterol Discharge Activity: Return to Normal Activity Call your doctor if you observe: Shortness of breath, Dizziness, Fainting spells, Chest pain, Increased palpitations (irregular heartbeat) Home Medications: Medications to take at Discharge Amiodarone HCl [Cordarone] 200 mg PO DAILY 02/05/17 Apixaban [Eliquis] 5 mg PO BID 02/05/17 Aspirin [Aspirin, Baby] 81 mg PO DAILY@0800 02/05/17 Atorvastatin Calcium [Lipitor] 40 mg PO QHS 02/05/17 Febuxostat [Uloric] 40 mg PO DAILY 02/05/17 Glimepiride [Amaryl] 2 mg PO BID 02/05/17 Iron Polysaccharide Complex [Ferrex 150] 150 mg PO BID 02/05/17 Isosorbide Mononitrate [Imdur] 30 mg PO DAILY 02/05/17 Metoprolol Succinate 100 mg PO BID 02/05/17 [place] Q Plus 2 cap PO DAILY 02/05/17 Potassium Chloride [K-Dur] 20 meq PO BID 02/05/17 Torsemide [Demadex] 20 mg PO DAILY 02/05/17 Venlafaxine HCl [Effexor] 37.5 mg PO DAILY 02/05/17 hydrALAZINE [Apresoline] 25 mg PO TID 02/05/17 insulin detemir (U-100) 100 unit/mL subcutaneous solution 20 unit SC QHS 05/13/17 Ubidecarenone [Coq10] 50 mg PO BID 09/18/17 Oseltamivir Phosphate [Tamiflu] 30 mg PO BID #7 cap 09/19/17 Prednisone See Taper PO DAILY #30 tab 09/19/17 Following Prescrptions Were Given to Patient: Prednisone See Taper PO DAILY #30 tab Oseltamivir Phosphate [Tamiflu] 30 mg PO BID #7 cap Primary Care Physician: Chad Hill DO [Primary Care Provider] - Please follow up with your Primary Care Physician in: 1 Week Please Follow Up With: Ezio Mares MD When: 1-2 Weeks Please Follow Up With: Dao Carranza MD When: As scheduled Disposition: Home Minutes spent on discharge:: 35 Patient Condition:: Stable Medical Necessity - Tobacco Use Smoking Status: Never smoker Meaningful Use Info Meaningful Use Diagnoses (Choose all that apply): None applicable <Paintsil,[place] - Last Filed: 09/19/17 15:18> Discharge Date and Diagnosis - Secondary Discharge Diagnosis Chronic Problems (Last Reviewed 08/12/17 @ 09:55 by Arline Llamas NP-C) VICKY (obstructive sleep apnea) (Chronic) S/P CABG x 3 (Chronic) Chronic renal insufficiency (Chronic) Compartment syndrome of right lower extremity (Chronic) Diabetes mellitus (Chronic) Hyperlipidemia (Chronic) Depression (Chronic) Gout (Chronic) Delayed surgical wound healing (Chronic) Wound, surgical, nonhealing (Chronic) Pulmonary emboli (Chronic) CHF (congestive heart failure) (Chronic) DVT (deep venous thrombosis) (Chronic) Pulmonary hypertension (Chronic) Chronic kidney disease, stage 3 (Chronic) Paroxysmal atrial fibrillation (Chronic) Congestive heart failure (CHF) (Chronic) Type 2 diabetes mellitus (Chronic) Hypertension (Chronic) Coronary artery disease (Chronic) Hospital Course and Treatment Imaging Results: 09/19/17 11:06 Nuclear Stress Test - Chemical [NM] Routine Summary of Care Provided: The patient is a 72 year old M [] Code Visit Inpatient E&M: 24876 Disch Hosp
--- NOTE | 2017-09-19 14:56 | DS.PCM_ITS ---
<Stefanie Holliday - Last Filed: 09/19/17 14:56> Discharge Date and Diagnosis Date of Admission: 09/18/17 Date of Discharge: 09/19/17 - Primary Discharge Diagnosis Active and Suspected Problems (Last Reviewed 08/12/17 @ 09:55 by Arline Llamas NP-C) 1. Acute COPD exacerbation secondary to acute influenza B with associated hypoxia 2. Elevated troponin-ACS ruled out. 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) Diabetes mellitus (Chronic) Hyperlipidemia (Chronic) Depression (Chronic) Gout (Chronic) Delayed surgical wound healing (Chronic) Wound, surgical, nonhealing (Chronic) Pulmonary emboli (Chronic) CHF (congestive heart failure) (Chronic) DVT (deep venous thrombosis) (Chronic) Pulmonary hypertension (Chronic) Chronic kidney disease, stage 3 (Chronic) Paroxysmal atrial fibrillation (Chronic) Congestive heart failure (CHF) (Chronic) Type 2 diabetes mellitus (Chronic) Hypertension (Chronic) Coronary artery disease (Chronic) Hospital Course and Treatment Imaging Results: Diagnostic Data Chest X-Ray 09/17/17 23:05 IMPRESSION: Improvement in the size of the pleural effusions. Electronically Signed: Shaggy Cowan MD at 23:21 EDT , Service support , Dr. Estrada- Cardiology Operations: None Procedures: Stress test Summary of Care Provided: Patient is a 72-year-old male admitted 09/18/17 due to generalized weakness ?3 days. He has a past medical history of CAD status post CABG ?3, COPD, obstructive sleep apnea, type 2 diabetes mellitus, hypertension, hyperlipidemia , depression, gout, history of pulmonary embolism/DVT, chronic CHF, paroxysmal atrial fibrillation, chronic kidney disease stage III. 1. Acute COPD Exacerbation secondary to acute influenza B with associated hypoxia-wean off of oxygen and stable on room air. Continue Tamiflu 30 mg twice daily for a total of 10 doses. Prednisone taper at discharge. 2. Elevated troponin-chronically elevated enzymes. Cardiology consulted. Patient follows with Dr. Mares. Patient underwent stress test which was negative for ischemia. Patient can continue outpatient follow-up with cardiology. 3. CAD status post CABG ?3-denies chest pain. Follows with Dr. Mares as noted above. Continue home aspirin, statin, nitrate regimen. 4. Chronic kidney disease stage III-stable. 5. Type 2 diabetes mellitus-continue home insulin regimen. 6. History of DVT/PE-continue home Eliquis regimen. 7. Chronic systolic CHF-echocardiogram from 2012 showed an EF of 37%. Continue home regimen of torsemide, metoprolol. 8. Obstructive sleep apnea-continue home CPAP regimen. Continue outpatient follow-up with pulmonary medicine. 9. Hypertension-stable, continue home regimen. 10. Hyperlipidemia-continue statin. 11. Paroxysmal atrial fibrillation-continue home amiodarone, metoprolol and Eliquis regimen. 12. Depression-continue home Effexor regimen. 13. Gout-continue home Uloric regimen. 14. Obesity-encourage diet and lifestyle modifications. General: Alert, Oriented x3, Cooperative, No apparent distress HEENT: Atraumatic, PERRLA, EOMI, Normocephalic Neck: Supple, No JVD, Negative Carotid Bruits Lungs: Clear to auscultation, Diminished Cardiovascular: Regular rate, Normal S1, Normal S2, Murmur Abdomen: Bowel Sounds Present, Soft, Non Tender, Non-Distended, Obese Extremities: No clubbing, No cyanosis, No edema, Capillary Refill Less than 3 Seconds Skin: No rashes, No breakdown Musculoskeletal: No Tenderness to Palpation of Joints or Extremities Neurological: Cranial nerves II-XII grossly intact, Neuro grossly intact Psych/Mental Status: Normal Affect, Appropriate Patient seen and examined prior to discharge. Physical assessment as an above. Patient is stable for discharge home with recommendations as noted above. This patient was seen by JEOVANNY Parnell under the supervision of Dr. Gupta. Discharge Diet: Low fat/ Low Cholesterol Discharge Activity: Return to Normal Activity Call your doctor if you observe: Shortness of breath, Dizziness, Fainting spells , Chest pain, Increased palpitations (irregular heartbeat) Home Medications: Medications to take at Discharge Amiodarone HCl [Cordarone] 200 mg PO DAILY 02/05/17 Apixaban [Eliquis] 5 mg PO BID 02/05/17 Aspirin [Aspirin, Baby] 81 mg PO DAILY@0800 02/05/17 Atorvastatin Calcium [Lipitor] 40 mg PO QHS 02/05/17 Febuxostat [Uloric] 40 mg PO DAILY 02/05/17 Glimepiride [Amaryl] 2 mg PO BID 02/05/17 Iron Polysaccharide Complex [Ferrex 150] 150 mg PO BID 02/05/17 Isosorbide Mononitrate [Imdur] 30 mg PO DAILY 02/05/17 Metoprolol Succinate 100 mg PO BID 02/05/17 Grimes Q Plus 2 cap PO DAILY 02/05/17 Potassium Chloride [K-Dur] 20 meq PO BID 02/05/17 Torsemide [Demadex] 20 mg PO DAILY 02/05/17 Venlafaxine HCl [Effexor] 37.5 mg PO DAILY 02/05/17 hydrALAZINE [Apresoline] 25 mg PO TID 02/05/17 insulin detemir (U-100) 100 unit/mL subcutaneous solution 20 unit SC QHS Ubidecarenone [Coq10] 50 mg PO BID 09/18/17 Oseltamivir Phosphate [Tamiflu] 30 mg PO BID #7 cap 09/19/17 Prednisone See Taper PO DAILY #30 tab 09/19/17 Following Prescrptions Were Given to Patient: Prednisone See Taper PO DAILY #30 tab Oseltamivir Phosphate [Tamiflu] 30 mg PO BID #7 cap Primary Care Physician: Chad Hill DO [Primary Care Provider] - Please follow up with your Primary Care Physician in: 1 Week Please Follow Up With: Ezio Mares MD When: 1-2 Weeks Please Follow Up With: Dao Carranza MD When: As scheduled Disposition: Home Minutes spent on discharge:: 35 Patient Condition:: Stable Medical Necessity - Tobacco Use Smoking Status: Never smoker Meaningful Use Info Meaningful Use Diagnoses (Choose all that apply): None applicable <[place] - Last Filed: 09/19/17 15:18> Discharge Date and Diagnosis - Secondary Discharge Diagnosis Chronic Problems (Last Reviewed 08/12/17 @ 09:55 by Arline Llamas NP-C) VICKY (obstructive sleep apnea) (Chronic) S/P CABG x 3 (Chronic) Chronic renal insufficiency (Chronic) Compartment syndrome of right lower extremity (Chronic) Diabetes mellitus (Chronic) Hyperlipidemia (Chronic) Depression (Chronic) Gout (Chronic) Delayed surgical wound healing (Chronic) Wound, surgical, nonhealing (Chronic) Pulmonary emboli (Chronic) CHF (congestive heart failure) (Chronic) DVT (deep venous thrombosis) (Chronic) Pulmonary hypertension (Chronic) Chronic kidney disease, stage 3 (Chronic) Paroxysmal atrial fibrillation (Chronic) Congestive heart failure (CHF) (Chronic) Type 2 diabetes mellitus (Chronic) Hypertension (Chronic) Coronary artery disease (Chronic) Hospital Course and Treatment Imaging Results: 09/19/17 11:06 Nuclear Stress Test - Chemical [NM] Routine Summary of Care Provided: The patient is a 72 year old M [] Code Visit Inpatient E&M: 29973 Disch Hosp
== END 2017-09-19 18:20 | disposition home or self-care (01) | DRG 194 ==
LOC: ED 23:11 → PCU 09-18 00:45
PROVIDERS: Family Medicine; Admitting Provider Internal Medicine; Emergency Provider Emergency Medicine; Family Provider Preventive Medicine Occupational Medicine; PCP Preventive Medicine Occupational Medicine; Visit Provider Internal Medicine
DX: J10.1 Influenza due to other identified influenza virus with other respiratory manifestations (principal); J44.1 Chronic obstructive pulmonary disease with (acute) exacerbation; I13.0 Hypertensive heart and chronic kidney disease with heart failure and stage 1 through stage 4 chronic kidney disease, or unspecified chronic kidney disease; I50.42 Chronic combined systolic (congestive) and diastolic (congestive) heart failure; I25.10 Atherosclerotic heart disease of native coronary artery without angina pectoris; E11.22 Type 2 diabetes mellitus with diabetic chronic kidney disease; N18.3 Chronic kidney disease, stage 3 (moderate); G47.33 Obstructive sleep apnea (adult) (pediatric); E78.5 Hyperlipidemia, unspecified; I48.0 Paroxysmal atrial fibrillation; F32.9 Major depressive disorder, single episode, unspecified; F41.9 Anxiety disorder, unspecified; I27.20 Pulmonary hypertension, unspecified; R74.8 Abnormal levels of other serum enzymes; I25.2 Old myocardial infarction; J45.40 Moderate persistent asthma, uncomplicated; Z95.1 Presence of aortocoronary bypass graft; Z86.718 Personal history of other venous thrombosis and embolism; Z86.711 Personal history of pulmonary embolism; E11.21 Type 2 diabetes mellitus with diabetic nephropathy; M10.9 Gout, unspecified; E66.01 Morbid (severe) obesity due to excess calories; D50.9 Iron deficiency anemia, unspecified; D63.8 Anemia in other chronic diseases classified elsewhere; Z68.39 Body mass index [BMI] 39.0-39.9, adult; Z71.3 Dietary counseling and surveillance; Z99.81 Dependence on supplemental oxygen
CPT/HCPCS: 36415; 71045; 78452; 80048; 80053; 80061; 81001; 82962; 83036; 83735; 83880; 84443; 84484; 85025; 85027; 85610; 85730; 87804; 93005; 93017; 93306; 94640; 97162; 97166; 97802; 99285; A9500; J7040; Q9957; A4216; C8929; J2785